=== PATIENT | female | born 1980 | race Caucasian/White ===

== ENCOUNTER → 2022-02-14 16:18 | Outpatient (BNVA) | payer OTHER, SELFPAY | PROVIDERS: Visit Provider Family Medicine | DX: R79.89 Other specified abnormal findings of blood chemistry (principal); Z13.220 Encounter for screening for lipoid disorders; Z13.6 Encounter for screening for cardiovascular disorders; Z76.89 Persons encountering health services in other specified circumstances; Z12.4 Encounter for screening for malignant neoplasm of cervix; Z12.39 Encounter for other screening for malignant neoplasm of breast | CPT/HCPCS: 80053; 80061; 82306; 84443; 85025 ==

== ENCOUNTER → 2022-04-18 11:35 | Outpatient (BNVA) | payer OTHER, SELFPAY | PROVIDERS: Visit Provider Nurse Practitioner Women's Health | DX: N93.9 Abnormal uterine and vaginal bleeding, unspecified (principal); Z12.4 Encounter for screening for malignant neoplasm of cervix | CPT/HCPCS: 87624 ==

== ENCOUNTER → 2022-04-25 13:32 | Outpatient (BNVA) | payer OTHER, SELFPAY | PROVIDERS: Visit Provider Nurse Practitioner Women's Health | DX: N93.9 Abnormal uterine and vaginal bleeding, unspecified (principal) | CPT/HCPCS: 76830 ==

== ENCOUNTER 2022-05-03 10:13 | Outpatient (CLI) | payer OTHER, SELFPAY ==
--- NOTE | 2022-05-03 10:22 | MM_ITS ---
WS: [id number] BILATERAL SCREENING DIGITAL BREAST MAMMOGRAPHY WITH LIZY DISPLACEMENT VIEWS. CAD PERFORMED. HISTORY: Breast cancer screening COMPARISON: None available. Bilateral craniocaudal and mediolateral oblique views are performed with tomosynthesis and SM. Lizy displacement views in CC and MLO projection also performed. Breasts composition: The breasts are heterogeneously dense, which may obscure small masses. Breast i mplants are identified. No capsular contraction or collapse of either implant. Normal fibroglandular densities. No persistent masses or calcifications. MM/[place] [id number] IMPRESSION: BI-RADS: 2-Benign FOLLOW-UP: 1 Year Follow-up
== END 2022-05-03 10:14 | disposition home or self-care (01) ==
PROVIDERS: PCP Family Medicine; Visit Provider Family Medicine
DX: Z12.31 Encounter for screening mammogram for malignant neoplasm of breast (principal)
CPT/HCPCS: 77063; 77067

== ENCOUNTER → 2022-05-12 14:51 | Outpatient (BNVA) | payer OTHER, SELFPAY | PROVIDERS: PCP Family Medicine; Visit Provider Nurse Practitioner Women's Health | DX: N93.9 Abnormal uterine and vaginal bleeding, unspecified (principal); D22.9 Melanocytic nevi, unspecified | CPT/HCPCS: 84702 ==

== ENCOUNTER → 2022-06-26 10:14 | Outpatient (BNVA) | payer OTHER, SELFPAY | PROVIDERS: PCP Family Medicine; Visit Provider Registered Nurse Neonatal Intensive Care | DX: N30.00 Acute cystitis without hematuria (principal) | CPT/HCPCS: 81000 ==

== ENCOUNTER → 2022-07-02 12:51 | Outpatient (BNVA) | payer OTHER, SELFPAY | PROVIDERS: PCP Family Medicine; Visit Provider Family Medicine | DX: N39.0 Urinary tract infection, site not specified (principal) | CPT/HCPCS: 81000 ==

== ENCOUNTER → 2023-02-27 11:20 | Outpatient (BNVA) | payer OTHER, SELFPAY | PROVIDERS: PCP Family Medicine; Visit Provider Podiatrist Foot & Ankle Surgery | DX: B35.3 Tinea pedis (principal) | CPT/HCPCS: 36415; 80053 ==

== ENCOUNTER → 2023-04-12 12:14 | Outpatient (BNVA) | payer OTHER, SELFPAY | PROVIDERS: PCP Family Medicine; Visit Provider Podiatrist Foot & Ankle Surgery | DX: B35.1 Tinea unguium (principal) | CPT/HCPCS: 80053 ==

== ENCOUNTER → 2023-05-17 10:15 | Outpatient (BNVA) | payer OTHER, SELFPAY | PROVIDERS: PCP Family Medicine; Visit Provider Nurse Practitioner Women's Health | DX: N63.20 Unspecified lump in the left breast, unspecified quadrant (principal); Z01.419 Encounter for gynecological examination (general) (routine) without abnormal findings | CPT/HCPCS: 87624 ==

== ENCOUNTER 2023-07-03 10:44 | Outpatient (CLI) | payer OTHER, SELFPAY ==
--- NOTE | 2023-07-03 10:48 | MM_ITS ---
WS: [id number] DIAGNOSTIC BILATERAL DIGITAL BREAST TOMOSYNTHESIS MAMMOGRAPHY WITH CAD with implant displacement. LEFT breast ultrasound, limited HISTORY: N63.20 - Unspecified lump in the left breast, unspecified... COMPARISON: 05/03/2022 TECHNIQUE: Bilateral craniocaudad, mediolateral oblique, and mediolateral views are submitted with to mosynthesis and SM with implant displacement. Spot compression LEFT CC and MLO. Computer aided detect ion utilized. Breast composition: The breasts are heterogeneously dense, which may obscure small masses. There is a spiculated mass noted in the superior LEFT breast. Difficult to visualize on the CC projection due t o the implants. This is new since the prior exam. Implants are intact. LEFT breast ultrasound, limited. Hypoechoic mass with irregular borders in the LEFT breast at 12:00 corresponds to the mammographic ab normality. Mass measures 1.5 x 2.2 x 1.0 cm. This mass is closely associated with the breast implant. This needs to be further evaluated by biopsy. IMPRESSION: MM/[place] [id number] BI-RADS: 4-Suspicious Finding-Biopsy Should Be Considered FOLLOW UP: Biopsy Recommended Ultrasound-guided biopsy recommended of the spiculated mass 12:00 LEFT breast. Notified ROME Modi at 07/03/2023 1:45 PM.
== END 2023-07-03 10:45 | disposition home or self-care (01) ==
LOC: RAD 10:44
PROVIDERS: PCP Family Medicine; Visit Provider Nurse Practitioner Women's Health
DX: N63.25 Unspecified lump in the left breast, overlapping quadrants (principal); T85.42XA Displacement of breast prosthesis and implant, initial encounter; Y82.8 Other medical devices associated with adverse incidents
CPT/HCPCS: 76642; 77062; G0279

== ENCOUNTER 2023-07-20 11:32 | Outpatient (CLI) | payer OTHER, SELFPAY ==
--- NOTE | 2023-07-20 12:45 | US_ITS ---
WS: [id number] ULTRASOUND-GUIDED LEFT BREAST BIOPSY HISTORY: N63.20 - Unspecified lump in the left breast, unspecified... COMPARISON: 07/03/2023 mammogram and ultrasound. Procedure, risks and complications are explained to the patient. Medications are reviewed. Consent is obtained. The mass in the LEFT breast is localized with ultrasound. There is a breast implant identified. Skin is cleansed with ChloraPrep and anesthetized with 1% buffered lidocaine. Small dermatome is made. Und er sterile conditions mass is biopsied with a 14-gauge Achieve needle. Multiple core biopsies are per formed. Material placed in formalin and sent to pathology for review. No complications encountered. Breast tissue marker (Bard ultrasound enhanced ribbon): Single. Patient left the radiology suite with no complications. Patient is instructed to return to [facility] or [facility] with any concerns. IMPRESSION: 1. Uncomplicated core needle biopsy LEFT breast mass at 12:00, 3 cm from the nipple. 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 Background ductal carcinoma in situ. No definite lymphovascular inv asion. RECOMMENDATION: Review of the entire pathology report. Follow-up with oncology and breast surgeon.
[2023-07-31 10:30] LABS: Breast Profile ER,PR,HER2,Ki-6 See Report
== END 2023-07-20 11:33 | disposition home or self-care (01) ==
LOC: RAD 11:32
PROVIDERS: PCP Family Medicine; Visit Provider Nurse Practitioner Women's Health
DX: C50.812 Malignant neoplasm of overlapping sites of left female breast (principal); R92.0 Mammographic microcalcification found on diagnostic imaging of breast
CPT/HCPCS: 19083; 88305; 88361; 88374

== ENCOUNTER 2023-10-18 10:42 | Outpatient (CLI) | payer OTHER, SELFPAY ==
--- NOTE | 2023-10-18 11:15 | USCV_ITS ---
Penny Garcia Age: 42 Gender: F : 1980 Exam Date: 10/18/2023 11:15 Ordering Phys: Abelardo Hancock MD Technologist: KATALINA Exam Location: [facility] – [place] Indication: HI-RISK MEDS BP: 100 / 62 HR: 56 Rhythm: Sinus Technical Quality: Adequate MEASUREMENTS (Male / Female) Normal Values 2D ECHO LV Diastolic Diameter PLAX 3.6 cm 4.2 - 5.9 / 3.9 - 5.3 cm IVS Diastolic Thickness 0.8 cm 0.6 - 1.0 / 0.6 - 0.9 cm IVS Systolic Thickness 1.2 cm LVPW Diastolic Thickness 1.6 cm 0.6 - 1.0 / 0.6 - 0.9 cm LVPW Systolic Thickness 1.8 cm LVOT Diameter 1.9 cm LV Ejection Fraction 2D Teich 57.8 % LV Ejection Fraction MOD 2C 70.5 % LV Ejection Fraction 2C AL 70.8 % LA Diameter 2.2 cm RA Systolic Volume 4C AL 9.1 ml RA Systolic Volume 4C MOD 8.8 ml Aorta at Sinotubular Diameter 2.4 cm IVC Diameter 1.4 cm M-MODE LA Ao Ratio MM 0.8 AV Cusp Separation MM 1.8 cm DOPPLER AV Peak Velocity 115.0 cm/s LVOT Peak Velocity 93.0 cm/s AV Area Cont Eq vti 2.5 cm squared AV Area Cont Eq pk 2.4 cm squared MV Peak Velocity 89.0 cm/s MV Area PHT 3.8 cm squared Mitral E to A Ratio 1.2 TR Peak Velocity 174.0 cm/s TR Peak Gradient 12.1 mmHg TR Mean Velocity 135.0 cm/s TR Mean Gradient 8.3 mmHg TR Velocity Time Integral 43.5 cm TV Peak E Velocity 66.0 cm/s PV Peak Velocity 101.0 cm/s RV Ejection Time 0.3 s FINDINGS Left Ventricle Normal left ventricular size and systolic function, EF 70%.. No gross wall motion normalities Right Ventricle The right ventricle is normal in size and function. Right Atrium The right atrium is normal in size. Left Atrium The left atrium is normal in size. Mitral Valve Trace to mild mitral valve regurgitation. Aortic Valve Minimally thickened aortic valve Tricuspid Valve Trace tricuspid valve regurgitation. Pulmonic Valve No gross abnormalities noted Pericardium Normal pericardium without effusion. Aorta Normal ascending aorta dimension. IVC Normal IVC dimension with <50% respiratory change of the inferior vena cava. CONCLUSIONS Normal left ventricular size and systolic function, EF 70%.. No gross wall motion normalities. Trace to mild mitral valve regurgitation. Trace tricuspid valve regurgitation. There is no pericardial effusion. There are no intracardiac masses. No similar previous studies are available for comparison Dr Apryl Morgan MD [facility] (Electronically Signed) Final Date: 19 October 2023 16:36 S
== END 2023-10-18 10:43 | disposition home or self-care (01) ==
LOC: RAD 10:42
PROVIDERS: PCP Family Medicine; Visit Provider Internal Medicine Medical Oncology
DX: C50.812 Malignant neoplasm of overlapping sites of left female breast (principal)
CPT/HCPCS: 93306

== ENCOUNTER 2023-11-08 08:05 | Oncology outpatient (recurring) (ONCR) | payer OTHER, SELFPAY ==
[2023-11-08 08:28] LABS: Basophils % 0.1 %; Lymphocytes # 1.2 10^3/uL (0.8-4.8); Lymphocytes % 10.2 %; Mean Corpuscular HGB Conc 33.2 g/dL (30-55); Mean Corpuscular Hemoglobin 28.3 pg (27-33); Mean Corpuscular Volume 85.2 fl (85-98); Mean Platelet Volume 9.8 fL (7.4-10.4); Monocytes # 0.9 10^3/uL (0.2-0.9); Neutrophils % 81.2 %; Nucleated Red Blood Cells % 0 %; Platelet Count 283 10^3/cmm (157-399); Red Blood Count 4.46 10^6/uL (3.85-5.65); Red Cell Distribution Width 12.1 % (12.1-15.1); White Blood Count 11.69 10^3/uL (3.29-11.43)
[2023-11-08 08:56] LABS: Alanine Aminotransferase 20 U/L (0-33); Albumin Level 4.4 g/dL (3.5-5.2); Alkaline Phosphatase 57 U/L (35-105); Anion Gap 14.7 (5-19); Aspartate Amino Transferase 21 U/L (0-32); Blood Urea Nitrogen 10 mg/dL (6-20); Calcium 9.8 mg/dL (8.5-10.5); Carbon Dioxide 24 mmol/L (22-29); Chloride 108 mmol/L (98-107); Globulin 2.9 g/dL (1.3-4.6); Glomerular Filtration Rate 109.6 mL/min (90-130); Glucose 130 mg/dL (65-115); Osmolality Calculated 297 mOsm/kg (285-295); Potassium 3.7 mmol/L (3.5-5.1); Sodium 143 mmol/L (136-145); Total Bilirubin 0.2 mg/dL (0.15-1.2); Total Protein 7.3 g/dL (6.6-8.7)
[2023-11-08] MEDS: sodium chloride 0.9% 250 ML 75 ML IV (10:48)
[2023-11-08] MEDS: OLANZapine 5 mg TABLET PO (10:48)
[2023-11-08] MEDS: palonosetron 0.25 mg/5 mL SDV IVP (10:48)
[2023-11-08] MEDS: famotidine 20 mg/2 mL INJ IVP (10:53)
[2023-11-08] MEDS: diphenhydrAMINE 50 mg/mL SDV 1mL 25 MG IVP (10:54)
[2023-11-08] MEDS: fosaprepitant 150 MG in sodium chloride 0.9% 150 ML 300 MG IV (11:14)
[2023-11-08] MEDS: pertuzumab 840 MG in sodium chloride 0.9% 250 ML 278 MG IV (12:08)
[2023-11-08] MEDS: TRASTUZUMAB DTTB IV (13:55)
[2023-11-08] MEDS: SODIUM CHLORIDE 0.9% IV ×2 (13:55→16:36)
[2023-11-08] MEDS: [UNRECOGNIZED DRUG - REMARK] 262 MG IV (15:32)
[2023-11-08] MEDS: CARBOPLATIN IV (16:36)
[2023-11-08] MEDS: pegfilgrastim 6 mg/0.6 mL Kit (onpro) SUBCUT (17:29)
[2023-11-08 17:38] VITALS: BP 125/85; PULSE 83; TEMP 36.3; O2SAT 97
== END 2023-11-08 23:59 | disposition home or self-care (01) ==
PROVIDERS: PCP Family Medicine; Visit Provider Internal Medicine Medical Oncology
DX: Z51.11 Encounter for antineoplastic chemotherapy (principal); C50.812 Malignant neoplasm of overlapping sites of left female breast
CPT/HCPCS: 80053; 85025; 96367; 96375; 96377; 96413; 96415; 96417; J1100; J1200; J1453; J2469; J2506; J3490; J7040; J7050; J9045; J9171; J9306; Q5112

== ENCOUNTER 2023-11-22 09:15 | Oncology outpatient (recurring) (ONCR) | payer OTHER, SELFPAY ==
[2023-11-15 12:04] LABS: Basophils % 0.3 %; Eosinophils % 0.2 %; Hematocrit 37.9 % (36-47); Lymphocytes # 1.9 10^3/uL (0.8-4.8); Lymphocytes % 18.1 %; Mean Corpuscular HGB Conc 33.8 g/dL (30-55); Mean Corpuscular Hemoglobin 28.3 pg (27-33); Mean Corpuscular Volume 83.8 fl (85-98); Mean Platelet Volume 10.5 fL (7.4-10.4); Monocytes # 2.4 10^3/uL (0.2-0.9); Monocytes % 22.5 %; Neutrophils # 5.43 10^3/uL (1.8-7.7); Neutrophils % 52.1 %; Nucleated Red Blood Cells % 0 %; Platelet Count 189 10^3/cmm (157-399); Red Blood Count 4.52 10^6/uL (3.85-5.65); Red Cell Distribution Width 11.9 % (12.1-15.1); White Blood Count 10.43 10^3/uL (3.29-11.43)
[2023-11-15 12:24] LABS: Alanine Aminotransferase 130 U/L (0-33); Albumin Level 4.2 g/dL (3.5-5.2); Alkaline Phosphatase 90 U/L (35-105); Anion Gap 13.4 (5-19); Aspartate Amino Transferase 71 U/L (0-32); Blood Urea Nitrogen 14 mg/dL (6-20); Calcium 9.2 mg/dL (8.5-10.5); Carbon Dioxide 27 mmol/L (22-29); Chloride 100 mmol/L (98-107); Glomerular Filtration Rate 109.6 mL/min (90-130); Glucose 90 mg/dL (65-115); Osmolality Calculated 282 mOsm/kg (285-295); Potassium 4.4 mmol/L (3.5-5.1); Sodium 136 mmol/L (136-145); Total Bilirubin 0.2 mg/dL (0.15-1.2); Total Protein 7.2 g/dL (6.6-8.7)
[2023-11-15 12:58] LABS: Slide Review Slide Review Perform
[2023-11-15] MEDS: dexamethasone 4 mg/mL INJ IVP (14:06)
[2023-11-15] MEDS: sodium chloride 0.9% 1,000 ML 999 ML IV (15:17)
[2023-11-15 15:20] VITALS: BP 105/70; PULSE 79; RESP 16; TEMP 36.6; O2SAT 99
[2023-11-22 09:29] VITALS: BP 110/76; PULSE 87; RESP 16; TEMP 36.7; O2SAT 99
[2023-11-22 09:30] VITALS: BMI 20.5
[2023-11-22 09:53] LABS: Basophils % 0.2 %; Eosinophils % 0.1 %; Hematocrit 32.3 % (36-47); Lymphocytes # 1.5 10^3/uL (0.8-4.8); Lymphocytes % 14.8 %; Mean Corpuscular HGB Conc 33.7 g/dL (30-55); Mean Corpuscular Hemoglobin 28.8 pg (27-33); Mean Corpuscular Volume 85.4 fl (85-98); Mean Platelet Volume 9.9 fL (7.4-10.4); Monocytes # 0.6 10^3/uL (0.2-0.9); Monocytes % 5.6 %; Neutrophils # 8.01 10^3/uL (1.8-7.7); Neutrophils % 78.1 %; Nucleated Red Blood Cells % 0 %; Platelet Count 105 10^3/cmm (157-399); Red Blood Count 3.78 10^6/uL (3.85-5.65); Red Cell Distribution Width 12.1 % (12.1-15.1); White Blood Count 10.25 10^3/uL (3.29-11.43)
[2023-11-22 10:17] LABS: Alanine Aminotransferase 25 U/L (0-33); Albumin Level 3.7 g/dL (3.5-5.2); Alkaline Phosphatase 68 U/L (35-105); Anion Gap 10.7 (5-19); Aspartate Amino Transferase 18 U/L (0-32); Blood Urea Nitrogen 8 mg/dL (6-20); Calcium 8.6 mg/dL (8.5-10.5); Carbon Dioxide 26 mmol/L (22-29); Chloride 106 mmol/L (98-107); Globulin 2.6 g/dL (1.3-4.6); Glomerular Filtration Rate 109.6 mL/min (90-130); Glucose 96 mg/dL (65-115); Osmolality Calculated 286 mOsm/kg (285-295); Potassium 3.7 mmol/L (3.5-5.1); Sodium 139 mmol/L (136-145); Total Bilirubin 0.2 mg/dL (0.15-1.2); Total Protein 6.3 g/dL (6.6-8.7)
[2023-11-22] MEDS: sodium chloride 0.9% 1,000 ML 999 ML IV (11:20)
[2023-11-22 12:30] VITALS: BP 117/74; PULSE 70; RESP 16; TEMP 36.6; O2SAT 98
== END 2023-11-27 23:59 | disposition home or self-care (01) ==
PROVIDERS: Nurse Practitioner Family; PCP Family Medicine; Visit Provider Internal Medicine Medical Oncology
DX: Z53.9 Procedure and treatment not carried out, unspecified reason (principal); C50.812 Malignant neoplasm of overlapping sites of left female breast
CPT/HCPCS: 80053; 85025; 96360; J1100; J7030

== ENCOUNTER 2023-11-29 07:59 | Oncology outpatient (recurring) (ONCR) | payer OTHER, SELFPAY ==
[2023-11-29 08:26] LABS: Basophils % 0.1 %; Hematocrit 29.9 % (36-47); Lymphocytes # 1.4 10^3/uL (0.8-4.8); Lymphocytes % 14.7 %; Mean Corpuscular HGB Conc 33.4 g/dL (30-55); Mean Corpuscular Hemoglobin 28.9 pg (27-33); Mean Corpuscular Volume 86.4 fl (85-98); Mean Platelet Volume 9.2 fL (7.4-10.4); Monocytes # 1.1 10^3/uL (0.2-0.9); Neutrophils # 7.01 10^3/uL (1.8-7.7); Neutrophils % 73.7 %; Nucleated Red Blood Cells % 0 %; Platelet Count 400 10^3/cmm (157-399); Red Blood Count 3.46 10^6/uL (3.85-5.65); Red Cell Distribution Width 13.5 % (12.1-15.1); White Blood Count 9.52 10^3/uL (3.29-11.43)
[2023-11-29 08:47] LABS: Alanine Aminotransferase 23 U/L (0-33); Albumin Level 3.8 g/dL (3.5-5.2); Alkaline Phosphatase 55 U/L (35-105); Anion Gap 13.5 (5-19); Aspartate Amino Transferase 26 U/L (0-32); Blood Urea Nitrogen 10 mg/dL (6-20); Calcium 9.3 mg/dL (8.5-10.5); Carbon Dioxide 25 mmol/L (22-29); Chloride 105 mmol/L (98-107); Globulin 2.9 g/dL (1.3-4.6); Glomerular Filtration Rate 135.3 mL/min (90-130); Glucose 96 mg/dL (65-115); Osmolality Calculated 289 mOsm/kg (285-295); Potassium 3.5 mmol/L (3.5-5.1); Sodium 140 mmol/L (136-145); Total Bilirubin 0.3 mg/dL (0.15-1.2); Total Protein 6.7 g/dL (6.6-8.7)
[2023-11-29] MEDS: sodium chloride 0.9% 250 ML 75 ML IV (10:33)
[2023-11-29] MEDS: diphenhydrAMINE 50 mg/mL SDV 1mL 25 MG IVP (10:34)
[2023-11-29] MEDS: OLANZapine 5 mg TABLET PO (10:34)
[2023-11-29] MEDS: famotidine 20 mg/2 mL INJ IVP (10:37)
[2023-11-29] MEDS: palonosetron 0.25 mg/5 mL SDV IVP (10:40)
[2023-11-29] MEDS: fosaprepitant 150 MG in sodium chloride 0.9% 150 ML 300 MG IV (11:18)
[2023-11-29] MEDS: pertuzumab 420 MG in sodium chloride 0.9% 250 ML 264 MG IV (12:08)
[2023-11-29] MEDS: TRASTUZUMAB DTTB IV (13:33)
[2023-11-29] MEDS: SODIUM CHLORIDE 0.9% IV ×2 (13:33→15:40)
[2023-11-29] MEDS: [UNRECOGNIZED DRUG - REMARK] 262 MG IV (14:34)
[2023-11-29] MEDS: CARBOPLATIN IV (15:40)
[2023-11-29] MEDS: pegfilgrastim 6 mg/0.6 mL Kit (onpro) SUBCUT (16:40)
[2023-11-29 16:55] VITALS: BP 122/78; PULSE 74; RESP 18; TEMP 36.6; O2SAT 98
== END 2023-11-29 23:59 | disposition home or self-care (01) ==
PROVIDERS: Nurse Practitioner Family; PCP Family Medicine; Visit Provider Internal Medicine Medical Oncology
DX: C50.812 Malignant neoplasm of overlapping sites of left female breast (principal)
CPT/HCPCS: 80053; 85025; 96367; 96375; 96377; 96401; 96413; 96415; J1100; J1200; J1453; J2469; J2506; J3490; J7040; J7050; J9045; J9171; J9306; Q5112

== ENCOUNTER 2023-12-20 07:30 | Oncology outpatient (recurring) (ONCR) | payer OTHER, SELFPAY ==
[2023-12-04 09:05] VITALS: BP 129/80; PULSE 107; RESP 16; TEMP 37.1; O2SAT 96
[2023-12-04] MEDS: sodium chloride 0.9% 1,000 ML 999 ML IV (09:11)
[2023-12-04 11:02] VITALS: BP 109/69; PULSE 92; RESP 16; O2SAT 98
[2023-12-06 09:18] VITALS: BP 102/68; PULSE 84; RESP 16; TEMP 37.3; O2SAT 98
[2023-12-06] MEDS: sodium chloride 0.9% 1,000 ML 999 ML IV (09:23)
[2023-12-06 09:27] LABS: Hematocrit 34.1 % (36-47); Mean Corpuscular HGB Conc 33.4 g/dL (30-55); Mean Corpuscular Hemoglobin 28.6 pg (27-33); Mean Corpuscular Volume 85.7 fl (85-98); Mean Platelet Volume 9.9 fL (7.4-10.4); Platelet Count 262 10^3/cmm (157-399); Red Blood Count 3.98 10^6/uL (3.85-5.65); Red Cell Distribution Width 13.2 % (12.1-15.1); White Blood Count 16.12 10^3/uL (3.29-11.43)
[2023-12-06 09:46] LABS: Slide Review Slide Review Perform
[2023-12-06 09:48] LABS: Absolute Segmented Neutrophil 7.7 10/cmm (1.6-7.1); Band Neutrophils Absolute 1.3 10^3/cmm (0.0-1.2); Eosinophils 0 %; Giant Platelets Trace; Lymphocytes 24 %; Monocytes Absolute 1.6 10^3/cmm (0.1-0.6); Platelet Estimate Normal (Normal); Segmented Neutrophils 48 %; Total Cells Counted 100 (0-100)
[2023-12-06 10:24] LABS: Alanine Aminotransferase 72 U/L (0-33); Albumin Level 4.2 g/dL (3.5-5.2); Alkaline Phosphatase 107 U/L (35-105); Anion Gap 15.8 (5-19); Aspartate Amino Transferase 44 U/L (0-32); Blood Urea Nitrogen 13 mg/dL (6-20); Calcium 9.6 mg/dL (8.5-10.5); Carbon Dioxide 27 mmol/L (22-29); Chloride 100 mmol/L (98-107); Globulin 2.8 g/dL (1.3-4.6); Glomerular Filtration Rate 109.6 mL/min (90-130); Glucose 93 mg/dL (65-115); Osmolality Calculated 288 mOsm/kg (285-295); Potassium 3.8 mmol/L (3.5-5.1); Sodium 139 mmol/L (136-145); Total Bilirubin 0.2 mg/dL (0.15-1.2)
[2023-12-13 09:00] VITALS: BP 122/79; PULSE 88; RESP 16; TEMP 36.6; O2SAT 100
[2023-12-13 14:18] VITALS: BP 114/74; PULSE 90; RESP 16; TEMP 36.6; O2SAT 99
[2023-12-13] MEDS: sodium chloride 0.9% 1,000 ML 999 ML IV (14:19)
[2023-12-20 07:54] LABS: Basophils % 0.1 %; Hematocrit 30.8 % (36-47); Lymphocytes # 1.5 10^3/uL (0.8-4.8); Lymphocytes % 15.8 %; Mean Corpuscular HGB Conc 33.1 g/dL (30-55); Mean Corpuscular Hemoglobin 28.9 pg (27-33); Mean Corpuscular Volume 87.3 fl (85-98); Mean Platelet Volume 9.3 fL (7.4-10.4); Monocytes # 0.9 10^3/uL (0.2-0.9); Monocytes % 9.4 %; Neutrophils # 7.27 10^3/uL (1.8-7.7); Neutrophils % 74.5 %; Nucleated Red Blood Cells % 0 %; Platelet Count 182 10^3/cmm (157-399); Red Blood Count 3.53 10^6/uL (3.85-5.65); Red Cell Distribution Width 15.4 % (12.1-15.1); White Blood Count 9.76 10^3/uL (3.29-11.43)
[2023-12-20 08:10] LABS: Alanine Aminotransferase 19 U/L (0-33); Albumin Level 4.1 g/dL (3.5-5.2); Alkaline Phosphatase 57 U/L (35-105); Anion Gap 13.6 (5-19); Aspartate Amino Transferase 18 U/L (0-32); Blood Urea Nitrogen 10 mg/dL (6-20); Calcium 9.4 mg/dL (8.5-10.5); Carbon Dioxide 25 mmol/L (22-29); Chloride 105 mmol/L (98-107); Globulin 2.6 g/dL (1.3-4.6); Glomerular Filtration Rate 109.6 mL/min (90-130); Glucose 94 mg/dL (65-115); Osmolality Calculated 289 mOsm/kg (285-295); Potassium 3.6 mmol/L (3.5-5.1); Sodium 140 mmol/L (136-145); Total Bilirubin 0.3 mg/dL (0.15-1.2); Total Protein 6.7 g/dL (6.6-8.7)
[2023-12-20] MEDS: sodium chloride 0.9% 500 ML IV (09:50)
[2023-12-20] MEDS: LORazepam 2 mg/mL INJ 1 mL 0.25 MG IVP (09:50)
[2023-12-20] MEDS: diphenhydrAMINE 50 mg/mL SDV 1mL 25 MG IVP (10:36)
[2023-12-20] MEDS: palonosetron 0.25 mg/5 mL SDV IVP (10:36)
[2023-12-20] MEDS: famotidine 20 mg/2 mL INJ IVP (10:38)
[2023-12-20] MEDS: fosaprepitant 150 MG in sodium chloride 0.9% 150 ML 300 MG IV (10:58)
[2023-12-20] MEDS: PERTUZUMAB IV (12:43)
[2023-12-20] MEDS: SODIUM CHLORIDE 0.9% IV ×3 (12:43→16:18)
[2023-12-20] MEDS: TRASTUZUMAB DTTB IV (14:00)
[2023-12-20] MEDS: [UNRECOGNIZED DRUG - REMARK] 262 MG IV (15:05)
[2023-12-20] MEDS: CARBOPLATIN IV (16:18)
[2023-12-20] MEDS: pegfilgrastim 6 mg/0.6 mL Kit (onpro) SUBCUT (17:22)
[2023-12-20 17:25] VITALS: BP 110/74; PULSE 77; RESP 18; TEMP 36.6; O2SAT 97
== END 2023-12-20 23:59 | disposition home or self-care (01) ==
PROVIDERS: Nurse Practitioner Family; PCP Family Medicine; Visit Provider Internal Medicine Medical Oncology
DX: Z53.9 Procedure and treatment not carried out, unspecified reason (principal); Z51.11 Encounter for antineoplastic chemotherapy; C50.812 Malignant neoplasm of overlapping sites of left female breast
CPT/HCPCS: 80053; 85007; 85025; 96360; 96367; 96375; 96377; 96413; 96417; J1100; J1200; J1453; J2060; J2469; J2506; J3490; J7030; J7040; J7050; J9045; J9171; J9306; Q5112

== ENCOUNTER 2023-12-28 10:00 | Oncology outpatient (recurring) (ONCR) | payer OTHER, SELFPAY ==
[2023-12-27 14:30] VITALS: BP 97/53; PULSE 100; RESP 16; O2SAT 96
[2023-12-27] MEDS: sodium chloride 0.9% 1,000 ML 999 ML IV (15:15)
[2023-12-27 15:41] LABS: Basophils # 0.1 10^3/uL (0.0-0.1); Basophils % 1.4 %; Hematocrit 31.8 % (36-47); Lymphocytes # 1.6 10^3/uL (0.8-4.8); Lymphocytes % 33.5 %; Mean Corpuscular HGB Conc 33.3 g/dL (30-55); Mean Corpuscular Hemoglobin 29.4 pg (27-33); Mean Corpuscular Volume 88.1 fl (85-98); Mean Platelet Volume 10.1 fL (7.4-10.4); Monocytes # 0.9 10^3/uL (0.2-0.9); Monocytes % 18.2 %; Neutrophils # 2.22 10^3/uL (1.8-7.7); Neutrophils % 45.9 %; Nucleated Red Blood Cells % 0 %; Platelet Count 141 10^3/cmm (157-399); Red Blood Count 3.61 10^6/uL (3.85-5.65); Red Cell Distribution Width 14.9 % (12.1-15.1); White Blood Count 4.84 10^3/uL (3.29-11.43)
[2023-12-27 16:13] LABS: Alanine Aminotransferase 42 U/L (0-33); Alkaline Phosphatase 86 U/L (35-105); Anion Gap 11.8 (5-19); Aspartate Amino Transferase 27 U/L (0-32); Blood Urea Nitrogen 12 mg/dL (6-20); Calcium 8.9 mg/dL (8.5-10.5); Carbon Dioxide 27 mmol/L (22-29); Chloride 100 mmol/L (98-107); Globulin 2.5 g/dL (1.3-4.6); Glomerular Filtration Rate 135.3 mL/min (90-130); Glucose 100 mg/dL (65-115); Osmolality Calculated 280 mOsm/kg (285-295); Potassium 3.8 mmol/L (3.5-5.1); Sodium 135 mmol/L (136-145); Total Bilirubin 0.3 mg/dL (0.15-1.2); Total Protein 6.5 g/dL (6.6-8.7)
[2023-12-27 16:24] LABS: Slide Review Slide Review Perform
[2023-12-27 16:26] VITALS: BP 100/67; PULSE 77; RESP 18; TEMP 36.3; O2SAT 97
[2023-12-28 10:26] VITALS: BP 102/68; PULSE 74; RESP 16; O2SAT 97
[2023-12-28] MEDS: sodium chloride 0.9% 1,000 ML 999 ML IV (10:31)
[2023-12-28 12:10] VITALS: BP 104/71; PULSE 75; RESP 16; TEMP 36.8; O2SAT 99
== END 2023-12-28 23:59 | disposition home or self-care (01) ==
PROVIDERS: Internal Medicine; PCP Family Medicine; Visit Provider Internal Medicine Medical Oncology
DX: Z53.9 Procedure and treatment not carried out, unspecified reason (principal); C50.812 Malignant neoplasm of overlapping sites of left female breast
CPT/HCPCS: 80053; 85025; 96360; 96361; J7030

== ENCOUNTER 2024-01-10 08:38 | Oncology outpatient (recurring) (ONCR) | payer OTHER, SELFPAY ==
[2024-01-10 09:29] LABS: Basophils % 0.1 %; Hematocrit 28.8 % (36-47); Lymphocytes # 1.5 10^3/uL (0.8-4.8); Lymphocytes % 19.6 %; Mean Corpuscular HGB Conc 33.3 g/dL (30-55); Mean Corpuscular Hemoglobin 30.2 pg (27-33); Mean Corpuscular Volume 90.6 fl (85-98); Mean Platelet Volume 9.7 fL (7.4-10.4); Monocytes # 0.6 10^3/uL (0.2-0.9); Monocytes % 8.5 %; Neutrophils # 5.29 10^3/uL (1.8-7.7); Neutrophils % 71.5 %; Nucleated Red Blood Cells % 0 %; Platelet Count 270 10^3/cmm (157-399); Red Blood Count 3.18 10^6/uL (3.85-5.65); Red Cell Distribution Width 18.3 % (12.1-15.1)
[2024-01-10 09:49] LABS: Alanine Aminotransferase 16 U/L (0-33); Albumin Level 4.1 g/dL (3.5-5.2); Alkaline Phosphatase 56 U/L (35-105); Anion Gap 15.4 (5-19); Aspartate Amino Transferase 19 U/L (0-32); Blood Urea Nitrogen 9 mg/dL (6-20); Calcium 9.4 mg/dL (8.5-10.5); Carbon Dioxide 25 mmol/L (22-29); Chloride 103 mmol/L (98-107); Globulin 2.3 g/dL (1.3-4.6); Glomerular Filtration Rate 134.7 mL/min (90-130); Glucose 108 mg/dL (65-115); Osmolality Calculated 289 mOsm/kg (285-295); Potassium 3.4 mmol/L (3.5-5.1); Sodium 140 mmol/L (136-145); Total Bilirubin 0.3 mg/dL (0.15-1.2); Total Protein 6.4 g/dL (6.6-8.7)
[2024-01-10 11:25] VITALS: BMI 20.6
[2024-01-10] MEDS: famotidine 20 mg/2 mL INJ IVP (11:37)
[2024-01-10] MEDS: diphenhydrAMINE 50 mg/mL SDV 1mL 25 MG IVP (11:37)
[2024-01-10] MEDS: sodium chloride 0.9% 250 ML 75 ML IV (11:37)
[2024-01-10] MEDS: fosaprepitant 150 MG in sodium chloride 0.9% 150 ML 300 MG IV (11:38)
[2024-01-10] MEDS: palonosetron 0.25 mg/5 mL SDV IVP (11:38)
[2024-01-10] MEDS: dexamethasone 4 mg/mL INJ 5 mL 12 MG IV (11:38)
[2024-01-10] MEDS: SODIUM CHLORIDE 0.9% IV ×2 (12:27→13:08)
[2024-01-10] MEDS: PERTUZUMAB IV (12:27)
[2024-01-10] MEDS: TRASTUZUMAB DTTB IV (13:08)
[2024-01-10] MEDS: [UNRECOGNIZED DRUG - REMARK] 262 MG IV (13:51)
[2024-01-10] MEDS: pegfilgrastim 6 mg/0.6 mL Kit (onpro) SUBCUT (15:25)
[2024-01-10 16:20] VITALS: BP 105/66; PULSE 87; RESP 16; TEMP 36.1; O2SAT 98
== END 2024-01-10 23:59 | disposition home or self-care (01) ==
PROVIDERS: Internal Medicine; PCP Family Medicine; Visit Provider Internal Medicine Medical Oncology
DX: C50.812 Malignant neoplasm of overlapping sites of left female breast; Z51.11 Encounter for antineoplastic chemotherapy
CPT/HCPCS: 80053; 85025; 96367; 96375; 96377; 96413; 96417; J1100; J1200; J1453; J2469; J2506; J3490; J7040; J7050; J9045; J9171; J9306; Q5112

== ENCOUNTER 2024-01-17 10:56 | Outpatient (CLI) | payer OTHER, SELFPAY ==
--- NOTE | 2024-01-17 11:15 | USCV_ITS ---
Penny Garcia Age: 43 Gender: F : 1980 Exam Date: 01/17/2024 11:23 Ordering Phys: Myah Almendarez MD Technologist: KATALINA Exam Location: [facility] [place] Indication: high risk meds BP: 107 / 67 HR: 91 Rhythm: Sinus Technical Quality: Adequate MEASUREMENTS (Male / Female) Normal Values 2D ECHO LV Diastolic Diameter PLAX 4.0 cm 4.2 - 5.9 / 3.9 - 5.3 cm IVS Diastolic Thickness 1.0 cm 0.6 - 1.0 / 0.6 - 0.9 cm IVS Systolic Thickness 1.3 cm LVPW Diastolic Thickness 1.1 cm 0.6 - 1.0 / 0.6 - 0.9 cm LVPW Systolic Thickness 1.6 cm LVOT Diameter 2.0 cm LV Ejection Fraction 2D Teich 68.8 % LV Ejection Fraction MOD 2C 63.7 % LV Ejection Fraction 2C AL 63.3 % LA Diameter 2.0 cm RA Systolic Volume 4C AL 9.2 ml RA Systolic Volume 4C MOD 8.6 ml LA Sys Volume AL 18.4 cm cubed LA Sys Volume Index AL 11.5 cm cubed/m squared Aorta at Sinotubular Diameter 2.2 cm IVC Diameter 1.9 cm M-MODE LA Ao Ratio MM 0.8 AV Cusp Separation MM 1.8 cm DOPPLER AV Peak Velocity 116.0 cm/s LVOT Peak Velocity 76.0 cm/s AV Area Cont Eq vti 2.2 cm squared AV Area Cont Eq pk 2.0 cm squared MV Peak Velocity 98.0 cm/s MV Area PHT 4.6 cm squared Mitral E to A Ratio 1.4 TR Peak Velocity 111.0 cm/s TR Peak Gradient 4.9 mmHg TR Mean Velocity 90.0 cm/s TR Mean Gradient 3.6 mmHg TR Velocity Time Integral 27.2 cm TV Peak E Velocity 62.0 cm/s Right Atrial Pressure 3.0 mmHg Pulmonary Artery Systolic Pressu 7.9 mmHg PV Peak Velocity 108.0 cm/s RV Ejection Time 0.3 s FINDINGS Left Ventricle Normal left ventricular size, systolic function and wall thickness, with no regional wall motion abnormalities. Normal left ventricle ejection fraction 60%. Normal diastolic filling pattern. Right Ventricle The right ventricle is normal in size and function. Right Atrium The right atrium is normal in size. Left Atrium The left atrium is normal in size. Mitral Valve Structurally normal mitral valve without significant stenosis or prolapse. There is mild mitral regurgitation. Aortic Valve Structurally normal aortic valve without significant sclerosis or stenosis. There is no aortic regurgitation. Tricuspid Valve Structurally normal tricuspid valve without significant stenosis, trace regurgitation. Pulmonary artery systolic pressure is normal. Pulmonic Valve Structurally normal pulmonic valve without significant stenosis. There is no pulmonic regurgitation. Pericardium Normal pericardium without effusion. Aorta Normal ascending aorta dimension. IVC The inferior vena cava appears normal. CONCLUSIONS 1-Normal left ventricular size, systolic function and wall thickness, with no regional wall motion abnormalities. Normal left ventricle ejection fraction 60%. Normal diastolic filling pattern. 2-There is no pericardial effusion. 3-No significant valve abnormalities. 4-Right atrial pressure is around 5 mm of mercury. Shaylee Ruiz MD (Electronically Signed) Final Date: 17 January 2024 20:56 S
== END 2024-01-17 10:57 | disposition home or self-care (01) ==
PROVIDERS: PCP Family Medicine; Visit Provider Internal Medicine
DX: C50.812 Malignant neoplasm of overlapping sites of left female breast (principal)
CPT/HCPCS: 93306

== ENCOUNTER 2024-01-23 14:00 | Oncology outpatient (recurring) (ONCR) | payer OTHER, SELFPAY ==
[2024-01-14 13:05] VITALS: BP 102/66; PULSE 80; RESP 18; TEMP 36.6; O2SAT 98
[2024-01-14] MEDS: sodium chloride 0.9% 1,000 ML 999 ML IV (13:10)
[2024-01-14 14:19] VITALS: BP 103/66; PULSE 87; RESP 18; TEMP 36.4; O2SAT 99
[2024-01-17 14:00] VITALS: BP 93/45; PULSE 80; RESP 16; TEMP 36.1; O2SAT 98
[2024-01-17] MEDS: sodium chloride 0.9% 1,000 ML 999 ML IV (14:00)
[2024-01-17 15:15] VITALS: BP 110/74; PULSE 88; RESP 16; TEMP 36.8; O2SAT 99
[2024-01-23 14:10] VITALS: BP 89/69; PULSE 84; RESP 18; TEMP 36.3; O2SAT 96
[2024-01-23] MEDS: sodium chloride 0.9% 1,000 ML 999 ML IV (14:28)
[2024-01-23 14:30] VITALS: BP 103/78; PULSE 84; RESP 18; TEMP 36.6; O2SAT 98
== END 2024-01-27 23:59 | disposition home or self-care (01) ==
PROVIDERS: PCP Family Medicine; Visit Provider Internal Medicine Medical Oncology
DX: Z53.9 Procedure and treatment not carried out, unspecified reason (principal); K52.1 Toxic gastroenteritis and colitis; T45.1X5A Adverse effect of antineoplastic and immunosuppressive drugs, initial encounter
CPT/HCPCS: 96360; J7030

== ENCOUNTER 2024-02-04 07:30 | Oncology outpatient (recurring) (ONCR) | payer OTHER, SELFPAY ==
[2024-01-28 14:10] VITALS: BP 103/66; PULSE 85; RESP 18; O2SAT 100
[2024-01-28] MEDS: sodium chloride 0.9% 1,000 ML 999 ML IV (14:14)
[2024-01-28 15:20] VITALS: BP 99/65; PULSE 85; RESP 18; O2SAT 100
[2024-02-04 08:09] LABS: Basophils % 0.2 %; Eosinophils % 0.2 %; Hematocrit 28.4 % (36-47); Lymphocytes # 1.4 10^3/uL (0.8-4.8); Lymphocytes % 27.4 %; Mean Corpuscular HGB Conc 32.7 g/dL (30-55); Mean Corpuscular Hemoglobin 30.8 pg (27-33); Mean Platelet Volume 9.4 fL (7.4-10.4); Monocytes # 0.7 10^3/uL (0.2-0.9); Neutrophils # 3.03 10^3/uL (1.8-7.7); Neutrophils % 58.8 %; Nucleated Red Blood Cells % 0 %; Platelet Count 311 10^3/cmm (157-399); Red Blood Count 3.02 10^6/uL (3.85-5.65); Red Cell Distribution Width 18.7 % (12.1-15.1); White Blood Count 5.15 10^3/uL (3.29-11.43)
[2024-02-04 08:41] LABS: Alanine Aminotransferase 18 U/L (0-33); Albumin Level 4.2 g/dL (3.5-5.2); Alkaline Phosphatase 48 U/L (35-105); Anion Gap 11.7 (5-19); Aspartate Amino Transferase 21 U/L (0-32); Blood Urea Nitrogen 12 mg/dL (6-20); Calcium 9.4 mg/dL (8.5-10.5); Carbon Dioxide 27 mmol/L (22-29); Chloride 106 mmol/L (98-107); Creatinine Clr Calc Pharmacy 129.0233; Globulin 2.3 g/dL (1.3-4.6); Glomerular Filtration Rate 134.7 mL/min (90-130); Glucose 103 mg/dL (65-115); Osmolality Calculated 292 mOsm/kg (285-295); Potassium 3.7 mmol/L (3.5-5.1); Sodium 141 mmol/L (136-145); Total Bilirubin 0.3 mg/dL (0.15-1.2); Total Protein 6.5 g/dL (6.6-8.7)
[2024-02-04] MEDS: sodium chloride 0.9% 250 ML 75 ML IV (09:53)
[2024-02-04] MEDS: palonosetron 0.25 mg/5 mL SDV IVP (09:54)
[2024-02-04] MEDS: dexamethasone 4 mg/mL INJ 5 mL 12 MG IVP (09:54)
[2024-02-04] MEDS: diphenhydrAMINE 50 mg/mL SDV 1mL 25 MG IVP (09:57)
[2024-02-04] MEDS: famotidine 20 mg/2 mL INJ IVP (09:59)
[2024-02-04] MEDS: fosaprepitant 150 MG in sodium chloride 0.9% 150 ML 300 MG IV (10:03)
[2024-02-04] MEDS: SODIUM CHLORIDE 0.9% IV ×2 (10:38→11:18)
[2024-02-04] MEDS: PERTUZUMAB IV (10:38)
[2024-02-04] MEDS: TRASTUZUMAB DTTB IV (11:18)
[2024-02-04] MEDS: [UNRECOGNIZED DRUG - REMARK] 262 MG IV (12:07)
[2024-02-04 14:30] VITALS: BP 97/59; PULSE 86; RESP 16; TEMP 36.6; O2SAT 96
[2024-02-04] MEDS: pegfilgrastim 6 mg/0.6 mL Kit (onpro) SUBCUT (14:30)
== END 2024-02-04 23:59 | disposition home or self-care (01) ==
PROVIDERS: Nurse Practitioner Family; PCP Family Medicine; Visit Provider Internal Medicine Medical Oncology
DX: C50.812 Malignant neoplasm of overlapping sites of left female breast; Z53.9 Procedure and treatment not carried out, unspecified reason; Z51.11 Encounter for antineoplastic chemotherapy; Z79.899 Other long term (current) drug therapy; Z79.52 Long term (current) use of systemic steroids
CPT/HCPCS: 80053; 85025; 96360; 96367; 96375; 96377; 96413; 96417; J1100; J1200; J1453; J2469; J2506; J3490; J7030; J7040; J7050; J9045; J9171; J9306; Q5112

== ENCOUNTER 2024-02-25 07:30 | Oncology outpatient (recurring) (ONCR) | payer OTHER, SELFPAY ==
[2024-02-11 08:58] VITALS: BP 101/69; PULSE 89; RESP 18; TEMP 36.9; O2SAT 96
[2024-02-11] MEDS: sodium chloride 0.9% 1,000 ML 999 ML IV (09:00)
[2024-02-11 10:16] VITALS: BP 98/64; PULSE 82; RESP 18; TEMP 36.9; O2SAT 100
[2024-02-14 09:08] VITALS: BP 117/84; PULSE 87; RESP 18; TEMP 36.3; O2SAT 98
[2024-02-14] MEDS: sodium chloride 0.9% 1,000 ML 999 ML IV (09:17)
[2024-02-14 10:20] VITALS: BP 109/72; PULSE 69; RESP 16; TEMP 36.2; O2SAT 99
[2024-02-18] MEDS: sodium chloride 0.9% 1,000 ML 999 ML IV (11:01)
[2024-02-18 11:05] VITALS: BP 103/68; PULSE 79; RESP 16; TEMP 36.9; O2SAT 95
[2024-02-18 12:20] VITALS: BP 104/67; PULSE 69; RESP 16; TEMP 36.8; O2SAT 98
[2024-02-21] MEDS: sodium chloride 0.9% 1,000 ML 999 ML IV (09:14)
[2024-02-21 10:05] VITALS: BP 100/64; PULSE 76; RESP 16; O2SAT 100
[2024-02-25 08:06] LABS: Basophils % 0.2 %; Hematocrit 24.7 % (36-47); Lymphocytes # 1.3 10^3/uL (0.8-4.8); Lymphocytes % 27.7 %; Mean Corpuscular HGB Conc 33.2 g/dL (30-55); Mean Corpuscular Hemoglobin 31.4 pg (27-33); Mean Corpuscular Volume 94.6 fl (85-98); Mean Platelet Volume 10.5 fL (7.4-10.4); Monocytes # 0.6 10^3/uL (0.2-0.9); Monocytes % 12.2 %; Neutrophils # 2.84 10^3/uL (1.8-7.7); Neutrophils % 59.7 %; Nucleated Red Blood Cells % 0 %; Platelet Count 86 10^3/cmm (157-399); Red Blood Count 2.61 10^6/uL (3.85-5.65); Red Cell Distribution Width 18.2 % (12.1-15.1); White Blood Count 4.76 10^3/uL (3.29-11.43)
[2024-02-25 08:27] LABS: Alanine Aminotransferase 21 U/L (0-33); Albumin Level 4.1 g/dL (3.5-5.2); Alkaline Phosphatase 40 U/L (35-105); Anion Gap 13.2 (5-19); Aspartate Amino Transferase 21 U/L (0-32); Blood Urea Nitrogen 12 mg/dL (6-20); Carbon Dioxide 25 mmol/L (22-29); Chloride 105 mmol/L (98-107); Creatinine Clr Calc Pharmacy 106.4804; Globulin 2.1 g/dL (1.3-4.6); Glomerular Filtration Rate 109.1 mL/min (90-130); Glucose 102 mg/dL (65-115); Osmolality Calculated 290 mOsm/kg (285-295); Potassium 3.2 mmol/L (3.5-5.1); Sodium 140 mmol/L (136-145); Total Bilirubin 0.2 mg/dL (0.15-1.2); Total Protein 6.2 g/dL (6.6-8.7)
[2024-02-25] MEDS: sodium chloride 0.9% 250 ML 75 ML IV (09:17)
[2024-02-25] MEDS: diphenhydrAMINE 50 mg/mL SDV 1mL 25 MG IVP (09:17)
[2024-02-25] MEDS: famotidine 20 mg/2 mL INJ IVP (09:27)
[2024-02-25] MEDS: palonosetron 0.25 mg/5 mL SDV IVP (09:31)
[2024-02-25] MEDS: dexamethasone 4 mg/mL INJ 5 mL 12 MG IV (09:34)
[2024-02-25] MEDS: fosaprepitant 150 MG in sodium chloride 0.9% 150 ML 300 MG IV (09:43)
[2024-02-25] MEDS: SODIUM CHLORIDE 0.9% IV ×2 (11:12→12:12)
[2024-02-25] MEDS: PERTUZUMAB IV (11:12)
[2024-02-25] MEDS: TRASTUZUMAB DTTB IV (12:12)
[2024-02-25] MEDS: [UNRECOGNIZED DRUG - REMARK] 259 MG IV (13:14)
[2024-02-25] MEDS: CARBOplatin 580 MG in sodium chloride 0.9% 500 ML 558 MG IV (14:26)
[2024-02-25] MEDS: pegfilgrastim 6 mg/0.6 mL Kit (onpro) SUBCUT (15:37)
[2024-02-25 15:50] VITALS: BP 90/58; PULSE 70; RESP 16; TEMP 36.6; O2SAT 99
== END 2024-02-25 23:59 | disposition home or self-care (01) ==
PROVIDERS: Nurse Practitioner Family; PCP Family Medicine; Visit Provider Internal Medicine Medical Oncology
DX: Z53.9 Procedure and treatment not carried out, unspecified reason (principal); Z51.11 Encounter for antineoplastic chemotherapy; Z51.12 Encounter for antineoplastic immunotherapy; C50.812 Malignant neoplasm of overlapping sites of left female breast; Z79.899 Other long term (current) drug therapy
CPT/HCPCS: 80053; 85025; 96360; 96367; 96375; 96377; 96413; 96417; J1100; J1200; J1453; J2469; J2506; J3490; J7030; J7040; J7050; J9045; J9171; J9306; Q5112

== ENCOUNTER 2024-03-17 08:45 | Oncology outpatient (recurring) (ONCR) | payer OTHER, SELFPAY ==
[2024-03-03 13:01] VITALS: BP 105/66; PULSE 97; RESP 18; TEMP 35.9; O2SAT 98
[2024-03-03] MEDS: sodium chloride 0.9% 1,000 ML 999 ML IV (13:09)
[2024-03-03 14:14] VITALS: BP 95/58; PULSE 87; RESP 16; TEMP 36; O2SAT 93
[2024-03-06] MEDS: sodium chloride 0.9% 1,000 ML 999 ML IV (14:30)
[2024-03-06 15:38] VITALS: BP 108/64; PULSE 88; RESP 16; TEMP 36.5; O2SAT 96
--- NOTE | 2024-03-10 14:00 | XR_ITS ---
WS: [id number] DEXA (DUAL ENERGY X-RAY ABSORPTIOMETRY) Bone mineral density was performed using a Step-In machine. HISTORY: premature menopause COMPARISON: None available. Lumbar spine BMD (L1-L4): 1.188 g/cm2 T score: 0.1 Z score: 0.5 Total hip BMD: Left: 0.853 g/cm2. T score: -1.2 Z score: -0.7 Right: 0.809 g/cm2. T score: -1.6 Z score: -1.0 10 year probability of a major osteoporotic fracture is 2.4%. XR/XR DEXA axial skeleton* [id number] IMPRESSION: OSTEOPENIA based upon the WHO classification for females.
[2024-03-17 08:57] LABS: Basophils % 0.2 %; Hematocrit 28.7 % (36-47); Lymphocytes % 20.6 %; Mean Corpuscular HGB Conc 32.4 g/dL (30-55); Mean Corpuscular Hemoglobin 32.4 pg (27-33); Mean Platelet Volume 10.3 fL (7.4-10.4); Monocytes # 0.5 10^3/uL (0.2-0.9); Monocytes % 10.4 %; Neutrophils # 3.22 10^3/uL (1.8-7.7); Neutrophils % 68.6 %; Nucleated Red Blood Cells % 0 %; Platelet Count 132 10^3/cmm (157-399); Red Blood Count 2.87 10^6/uL (3.85-5.65); Red Cell Distribution Width 18.3 % (12.1-15.1)
[2024-03-17 09:12] LABS: Alanine Aminotransferase 12 U/L (0-33); Albumin Level 3.9 g/dL (3.5-5.2); Alkaline Phosphatase 44 U/L (35-105); Anion Gap 14.1 (5-19); Aspartate Amino Transferase 17 U/L (0-32); Blood Urea Nitrogen 8 mg/dL (6-20); Calcium 8.8 mg/dL (8.5-10.5); Carbon Dioxide 24 mmol/L (22-29); Chloride 108 mmol/L (98-107); Globulin 2.2 g/dL (1.3-4.6); Glomerular Filtration Rate 134.7 mL/min (90-130); Glucose 95 mg/dL (65-115); Osmolality Calculated 292 mOsm/kg (285-295); Potassium 4.1 mmol/L (3.5-5.1); Sodium 142 mmol/L (136-145); Total Bilirubin 0.2 mg/dL (0.15-1.2); Total Protein 6.1 g/dL (6.6-8.7)
--- NOTE | 2024-03-17 09:55 | N.ONRAD NP_ITS ---
Radiation Oncology New Patient Visit Patient: Penny Garcia MR#: [id number] : 1980 Age: 43Sex: Female Dictated by: Dr. Kayla Maldonado Date of Service: 03/17/2024 Referring Physician(s) : Abelardo Hancock M.D. Diagnosis: Grade 3 infiltrating ductal carcinoma of the breast stage IIa, T2 N2a status post bilateral simple mastectomies with axillary dissection on the left with 24 nodes removed. Radiotherapy to date: Summary > No prior radiation therapy. Chief Complaint / History of Present Illness: Current Medications: aprepitant 80 mg PO DAILY, dexamethasone 8 mg (2 x 4 mg) PO DIRECTED, diphenoxylate-atropine 2.5-0.025 mg (Lomotil) 2 tabs PO QID PRN, fluconazole 100 mg PO DAILY, fluticasone propionate 50 mcg/actuation (Flonase Allergy Relief) 2 sprays intranasal DAILY, levocetirizine (Xyzal) 5 mg PO DAILY PRN, lidocaine HCl 2% (Lidocaine Viscous) 5 mL mucous membrane Q6H PRN, lidocaine-prilocaine 2.5-2.5 % Apply quarter-size amount to port site 30 minutes prior to access; cover with cling wrap, loratadine 10 mg PO DAILY, lorazepam 0.5 - 1 mg (0.5 - 1 x 1 mg) PO Q6H PRN, nystatin 4 mL PO QID, olanzapine (Zyprexa) 5 mg PO DAILY, ondansetron 8 mg PO Q8H, prochlorperazine maleate (Compazine) 10 mg PO Q4H PRN, triamcinolone acetonide 0.1% 1 applic topical BID PRN, valacyclovir 500 mg PO DAILY Allergies: Sulfa (Sulfonamide Antibiotics) Allergy (Verified 02/25/24 07:51) Unknown Medical History: No previous radiation therapy. 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 Repeated 08/20/23 at [facility] Left breast at 2:00--invasive ductal carcinoma, grade 3. At 1:00- Invasive ductal carcinoma, grade . H/O breast augmentation (~2012) saline implants Family History: Mother- Hyperlipidemia, Hypertension, Thyroid disease Grandmother- Breast cancer maternal---dx 60s Paternal--- dx 60s Father Drowning, accidental Sister Factor V Leiden mutation Denies family history of Colon cancer Ovarian cancer Diabetes Heart disease Uterine cancer Stroke Social History: Smoking and tobacco/nicotine status: never used tobacco/nicotine Alcohol intake: never Current Complaints / Review of Systems: . Vital Signs: Performed on 03/17/2024 9:04 AM BMI - 19.237 kg/m2, Height - 65 in, Weight - 115.6 lbs, Temperature - 96.9 f, Pulse - 90 /min, Respiration - 16 /min, O2 Sat - 96 %, Pain - 0, Fatigue - 0 and BP - 101/ 60 mm(hg)(/low). Physical Exam: General: Patient is in no apparent distress accompanied today by her HEENT: Normocephalic atraumatic. Pupils are equal, sclera clear, extraocular muscles intact. Pulmonary: Respiratory rate is regular nonlabored Cardiovascular: Regular rate and rhythm Chest wall: Bilateral chest grande have nicely healed. She has minimal adipose tissue and no redundant skin tissue. There are no nodules ulcerations or lesions noted Abdomen: Patient is quite thin with minimal adipose tissue Extremities: Without lymphedema in the upper or lower extremities Neurological: Alert and orient x 3. Gait and speech within normal limits Psych: Affect appropriate for current situation Performance Status: 90 Pathology: Lab: Imaging: See HPI Impression: Stage IIa infiltrating ductal carcinoma the breast status post bilateral simple mastectomies with extensive delfino dissection on the left followed by MIRTHA WEBER having completed this in October 2023. Currently undergoing every 3-week infusions of Herceptin. Plan: I reviewed the sequence of events. We discussed her pathology. We reviewed how she had manage to get through her chemotherapy. 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 We reviewed the simulation process. We discussed the daily treatment regiment. Reviewed the risks and side effects both acute and long-term. This point she has a good understanding. She has an appointment tomorrow to visit with the surgeon in [place] and we will get him set up for simulation sometime later this week. We talked about some different creams she could use on her skin as well as not put anything on her skin prior to treatment. This point she is agreed to proceed. Will see her back for simulation. Plan for a course of 5 weeks Signed by: 03/17/2024 9:53:43 AM <<Signature on File>> Time spent with patient:45 CPT Code: CPT Code:
[2024-03-17] MEDS: sodium chloride 0.9% 250 ML 75 ML IV (11:08)
[2024-03-17] MEDS: acetaminophen 325 mg Tablet 650 MG PO (11:09)
[2024-03-17] MEDS: diphenhydrAMINE 25 mg Capsule PO (11:09)
[2024-03-17] MEDS: pertuzumab 420 MG in sodium chloride 0.9% 250 ML 264 MG IV (11:47)
[2024-03-17] MEDS: SODIUM CHLORIDE 0.9% IV (12:45)
[2024-03-17] MEDS: TRASTUZUMAB DTTB IV (12:45)
[2024-03-17 13:41] VITALS: BP 92/60; PULSE 82; RESP 16; TEMP 36.7; O2SAT 99
[2024-03-17 13:55] VITALS: BP 90/71; PULSE 88; RESP 16; TEMP 36.6; O2SAT 99
== END 2024-03-17 23:59 | disposition home or self-care (01) ==
PROVIDERS: PCP Family Medicine; Visit Provider Internal Medicine Medical Oncology
DX: Z53.9 Procedure and treatment not carried out, unspecified reason (principal); Z51.12 Encounter for antineoplastic immunotherapy; C50.812 Malignant neoplasm of overlapping sites of left female breast; Z17.0 Estrogen receptor positive status [ER+]; Z79.899 Other long term (current) drug therapy
CPT/HCPCS: 77080; 80053; 85025; 96360; 96413; 96417; J7030; J7050; J9306; Q5112

== ENCOUNTER 2024-03-28 11:28 | Oncology outpatient (recurring) (ONCR) | payer OTHER, SELFPAY ==
--- NOTE | 2024-03-25 16:04 | ONCRAD TMN_ITS ---
Radiation Oncology Weekly Treatment Management Patient: Jose Francis> MR#: [id number] : 1980> Attending Physician: Dr. Kayla Maldonado Date of Service: 03/25/2024 Fractions: 2 out of 25 Referring Physician(s) : Abelardo Hancock M.D. Diagnosis: C50.412 - Malignant neoplasm of upper-outer quadrant of left female breast, Diagnosed 03/17/2024 (Active) C77.3 - Secondary and unspecified malignant neoplasm of axilla and upper limb lymph nodes, Diagnosed 03/17/2024 (Active) Radiotherapy to date: Course: L chest wall, Treatment Site: L chest wall, Ref. ID: [email or web address], Energy: 15X/6X, Dose/Fx (cGy): 200, #Fx: , Dose Correction (cGy): 0, Total Dose Delivered (cGy): 400, Start Date: 03/24/2024, Elapsed Days: 1 Reason for visit: The patient is being seen today as part of their regularly scheduled weekly on treatment visits to assess for acute toxicities from radiotherapy. Review of Systems: Patient had no changes or issues Vital Signs: Performed on 03/25/2024 3:37 PM BMI - 18.904 kg/m2, Height - 65 in, Weight - 113.6 lbs, Temperature - 97.5 f, Pulse - 91 /min, Respiration - 18 /min, O2 Sat - 99 %, Pain - 0, Fatigue - 0 and BP - 111/ 66 mm(hg). Physical Exam: No changes on exam. She did put lotion on before I was able to visualize her skin today. Imaging: Radiation therapy imaging related to accurate target localization (i.e. KV, MV and CBCT) was reviewed. Appropriate changes, if any, were made to ensure treatment accuracy. Plan: Will continue with her treatments as planned Signed by: Dr. Kayla Maldonado 03/25/2024 4:03:02 PM
== END 2024-03-29 23:59 | disposition home or self-care (01) ==
PROVIDERS: PCP Family Medicine; Visit Provider Internal Medicine Medical Oncology
DX: Z53.9 Procedure and treatment not carried out, unspecified reason (principal); C50.812 Malignant neoplasm of overlapping sites of left female breast; E28.319 Asymptomatic premature menopause; C50.912 Malignant neoplasm of unspecified site of left female breast; K52.1 Toxic gastroenteritis and colitis; T45.1X5A Adverse effect of antineoplastic and immunosuppressive drugs, initial encounter
CPT/HCPCS: 77290; 77295; 77300; 77334; 77387; 77412

== ENCOUNTER 2024-04-09 09:00 | Oncology outpatient (recurring) (ONCR) | payer OTHER, SELFPAY ==
--- NOTE | 2024-04-01 15:53 | ONCRAD TMN_ITS ---
Radiation Oncology Weekly Treatment Management Patient: Penny Garcia MR#: [id number] : 1980 Attending Physician: Dr. Kayla Maldonado Date of Service: 04/01/2024 . Fractions: 6 out of 25 Referring Physician(s) : Abelardo Hancock M.D. Diagnosis: C50.412 - Malignant neoplasm of upper-outer quadrant of left female breast, Diagnosed 03/17/2024 (Active) C77.3 - Secondary and unspecified malignant neoplasm of axilla and upper limb lymph nodes, Diagnosed 03/17/2024 (Active) Radiotherapy to date: Course: L chest wall, Treatment Site: L chest wall, Ref. ID: [email or web address], Energy: 15X/6X, Dose/Fx (cGy): 200, #Fx: , Dose Correction (cGy): 0, Total Dose Delivered (cGy): 1,200, Start Date: 03/24/2024, Elapsed Days: 8 Reason for visit: The patient is being seen today as part of their regularly scheduled weekly on treatment visits to assess for acute toxicities from radiotherapy. Review of Systems: Patient has noticed no changes in the way her skin feels Vital Signs: Performed on 04/01/2024 3:32 PM BMI - 19.187 kg/m2, Height - 65 in, Weight - 115.3 lbs, Temperature - 97 f, Pulse - 99 /min, Respiration - 16 /min, O2 Sat - 97 %, Pain - 0, Fatigue - 0 and BP - 118/ 58 mm(hg)(/low). Physical Exam: On exam it appears to be mildly erythematous Imaging: Radiation therapy imaging related to accurate target localization (i.e. KV, MV and CBCT) was reviewed. Appropriate changes, if any, were made to ensure treatment accuracy. Plan: Will continue with treatments as planned Signed by: Dr. Kayla Maldonado 04/01/2024 3:52:18 PM
--- NOTE | 2024-04-08 15:49 | ONCRAD TMN_ITS ---
Radiation Oncology Weekly Treatment Management Patient: Penny Garcia MR#: [id number] : 1980 Attending Physician: Dr. Kayla Maldonado Date of Service: 04/08/2024 Fractions: Referring Physician(s) : Abelardo Hancock M.D. Diagnosis: C50.412 - Malignant neoplasm of upper-outer quadrant of left female breast, Diagnosed 03/17/2024 (Active) C77.3 - Secondary and unspecified malignant neoplasm of axilla and upper limb lymph nodes, Diagnosed 03/17/2024 (Active) Radiotherapy to date: Course: L chest wall, Treatment Site: L chest wall, Ref. ID: [email or web address], Energy: 15X/6X, Dose/Fx (cGy): 200, #Fx: , Dose Correction (cGy): 0, Total Dose Delivered (cGy): 2,200, Start Date: 03/24/2024, Elapsed Days: 15 Reason for visit: The patient is being seen today as part of their regularly scheduled weekly on treatment visits to assess for acute toxicities from radiotherapy. Review of Systems: She has noticed her skin is getting a little more sensitive Vital Signs: Performed on 04/08/2024 3:37 PM BMI - 19.104 kg/m2, Height - 65 in, Weight - 114.8 lbs, Temperature - 96.9 f, Pulse - 60 /min, Respiration - 16 /min, O2 Sat - 100 %, Pain - 0, Fatigue - 0 and BP - 109/ 69 mm(hg). Physical Exam: On exam her skin is mildly erythematous. There is no moist or dry desquamation. Imaging: Radiation therapy imaging related to accurate target localization (i.e. KV, MV and CBCT) was reviewed. Appropriate changes, if any, were made to ensure treatment accuracy. Plan: Will continue with her treatments as planned. She will continue to use her cream on her skin. Signed by: Dr. Kayla Maldonado 04/08/2024 3:48:41 PM
[2024-04-09] VITALS (8 sets, daily range): BP systolic 106–142; BP diastolic 65–84; PULSE 64–107; RESP 16–20; TEMP 36.7–37; O2SAT 97–100
[2024-04-09 09:33] LABS: Basophils % 0.8 %; Eosinophils # 0.5 10^3/uL (0.0-0.8); Eosinophils % 14.3 %; Hematocrit 33.6 % (36-47); Lymphocytes % 28.4 %; Mean Corpuscular HGB Conc 33.3 g/dL (30-55); Mean Corpuscular Hemoglobin 32.6 pg (27-33); Mean Corpuscular Volume 97.7 fl (85-98); Mean Platelet Volume 9.3 fL (7.4-10.4); Monocytes # 0.4 10^3/uL (0.2-0.9); Monocytes % 11.5 %; Nucleated Red Blood Cells % 0 %; Platelet Count 150 10^3/cmm (157-399); Red Blood Count 3.44 10^6/uL (3.85-5.65); White Blood Count 3.56 10^3/uL (3.29-11.43)
[2024-04-09 09:53] LABS: Alanine Aminotransferase 30 U/L (0-33); Albumin Level 4.2 g/dL (3.5-5.2); Alkaline Phosphatase 48 U/L (35-105); Anion Gap 11.9 (5-19); Aspartate Amino Transferase 40 U/L (0-32); Blood Urea Nitrogen 10 mg/dL (6-20); Carbon Dioxide 28 mmol/L (22-29); Chloride 104 mmol/L (98-107); Globulin 2.4 g/dL (1.3-4.6); Glomerular Filtration Rate 134.7 mL/min (90-130); Glucose 98 mg/dL (65-115); Osmolality Calculated 289 mOsm/kg (285-295); Potassium 3.9 mmol/L (3.5-5.1); Sodium 140 mmol/L (136-145); Total Bilirubin 0.3 mg/dL (0.15-1.2); Total Protein 6.6 g/dL (6.6-8.7)
[2024-04-09] MEDS: acetaminophen 325 mg Tablet 650 MG PO (10:45)
[2024-04-09] MEDS: diphenhydrAMINE 25 mg Capsule PO (10:45)
[2024-04-09] MEDS: sodium chloride 0.9% 250 ML 75 ML IV (10:45)
[2024-04-09] MEDS: pertuzumab 420 MG in sodium chloride 0.9% 250 ML 264 MG IV (11:19)
[2024-04-09] MEDS: TRASTUZUMAB DTTB IV (12:04)
[2024-04-09] MEDS: SODIUM CHLORIDE 0.9% IV (12:04)
[2024-04-09] MEDS: methylPREDNISolone sod succ 125 mg/2 mL INJ 60 MG IVP ×2 (12:44→12:49)
[2024-04-09] MEDS: sodium chloride 0.9% 500 ML 999 ML IV (12:45)
[2024-04-09] MEDS: diphenhydrAMINE 50 mg/mL SDV 1mL 25 MG IVP (12:46)
--- NOTE | 2024-04-09 13:21 | ECG_ITS ---
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
--- NOTE | 2024-04-09 13:34 | PC.NURSE ---
patient reports congestion is resolved, hives itching on palms and abdomen but redness has decreased overall. Patient reports no longer having throat tightness. Patient now reports chest tenderness, EKG has been reviewed with provider.
--- NOTE | 2024-04-09 15:10 | PC.NURSE ---
Dr. Hancock informed that patient is no longer symptomatic. Patient is able to be discharged home with ER precautions. Patient verbalized understanding and denies any concerns at this time.
== END 2024-04-09 23:59 | disposition home or self-care (01) ==
PROVIDERS: PCP Family Medicine; Visit Provider Internal Medicine Medical Oncology
DX: C50.812 Malignant neoplasm of overlapping sites of left female breast; Z53.9 Procedure and treatment not carried out, unspecified reason; Z51.0 Encounter for antineoplastic radiation therapy; Z51.12 Encounter for antineoplastic immunotherapy; R07.9 Chest pain, unspecified; Z79.69 Long term (current) use of other immunomodulators and immunosuppressants; Z79.899 Other long term (current) drug therapy; Z79.52 Long term (current) use of systemic steroids
CPT/HCPCS: 77336; 77387; 77412; 80053; 85025; 93005; 96361; 96375; 96413; 96417; J1200; J2405; J2919; J7040; J7050; J9306; Q5112

== ENCOUNTER 2024-04-28 15:30 | Oncology outpatient (recurring) (ONCR) | payer OTHER, SELFPAY ==
--- NOTE | 2024-04-16 08:19 | ONCRAD TMN_ITS ---
Radiation Oncology Weekly Treatment Management Patient: Jose Francis> MR#: [id number] : 1980> Attending Physician: Dr. Kayla Maldonado Date of Service: 04/15/2024 Fractions: 16 out of 25 Referring Physician(s) : Abelardo Hancock M.D. Diagnosis: C50.412 - Malignant neoplasm of upper-outer quadrant of left female breast, Diagnosed 03/17/2024 (Active) C77.3 - Secondary and unspecified malignant neoplasm of axilla and upper limb lymph nodes, Diagnosed 03/17/2024 (Active) Radiotherapy to date: Course: L chest wall, Treatment Site: L chest wall, Ref. ID: [email or web address], Energy: 15X/6X, Dose/Fx (cGy): 200, #Fx: , Dose Correction (cGy): 0, Total Dose Delivered (cGy): 3,200, Start Date: 03/24/2024, Elapsed Days: 22 Reason for visit: The patient is being seen today as part of their regularly scheduled weekly on treatment visits to assess for acute toxicities from radiotherapy. Review of Systems: Patient skin has become increasingly erythematous. It is not pruritic. It is a little tender this week. Vital Signs: Performed on 04/15/2024 3:31 PM BMI - 18.738 kg/m2, Height - 65 in, Weight - 112.6 lbs, Temperature - 97.3 f, Pulse - 83 /min, Respiration - 18 /min, O2 Sat - 94 % (low), Pain - 0, Fatigue - 0 and BP - 113/ 73 mm(hg). Physical Exam: On exam her skin is erythematous. It is more so in the upper inner quadrant. There is no areas of moist or dry desquamation. Imaging: Radiation therapy imaging related to accurate target localization (i.e. KV, MV and CBCT) was reviewed. Appropriate changes, if any, were made to ensure treatment accuracy. Plan: She will continue to care for the skin as she has been doing. She will use cortisone if it becomes pruritic. She is allergic to sulfa so we will be able to use Silvadene. I encouraged her to use the aloe vera. Will continue with her treatments. Signed by: Dr. Kayla Maldonado 04/16/2024 8:18:29 AM
--- NOTE | 2024-04-22 16:19 | ONCRAD TMN_ITS ---
Radiation Oncology Weekly Treatment Management Patient: Penny Garcia MR#: [id number] : 1980 Attending Physician: Dr. Jovany Lopes Date of Service: 04/22/2024 Referring Physician(s) : Abelardo Hancock M.D. Diagnosis: C50.412 - Malignant neoplasm of upper-outer quadrant of left female breast, Diagnosed 03/17/2024 (Active) C77.3 - Secondary and unspecified malignant neoplasm of axilla and upper limb lymph nodes, Diagnosed 03/17/2024 (Active) Radiotherapy to date: Course: L chest wall, Treatment Site: L chest wall, Ref. ID: [email or web address], Energy: 15X/6X, Dose/Fx (cGy): 200, #Fx: 21 / 25Dose Correction (cGy): 0, Total Dose Delivered (cGy): 4,200, Start Date: 03/24/2024, Elapsed Days: 29 Reason for visit: The patient is being seen today as part of their regularly scheduled weekly on treatment visits to assess for acute toxicities from radiotherapy. Review of Systems: Notes some superior left chest itchiness. Otherwise she is doing well with good energy level and normal activities. She is using Curel topically. Vital Signs: Performed on 04/22/2024 3:39 PM BMI - 18.771 kg/m2, Height - 65 in, Weight - 112.8 lbs, Temperature - 97.1 f, Pulse - 65 /min, Respiration - 16 /min, O2 Sat - 99 %, Pain - 0, Fatigue - 0 and BP - 111/ 61 mm(hg)(/low). Physical Exam: General moderate erythema of left chest wall. No desquamation. Imaging: Radiation therapy imaging related to accurate target localization (i.e. KV, MV and CBCT) was reviewed. Appropriate changes, if any, were made to ensure treatment accuracy. Plan: Good tolerance of treatment. Continue as planned. Signed by: Dr. Jovany Lopes 04/22/2024 4:17:52 PM
--- NOTE | 2024-04-29 08:02 | N.ONRD TS_ITS ---
Radiation Oncology Treatment Summary Patient: Penny Garcia MR#: [id number] : 1980 Age: 43 Sex: Female Dictated by: Micah Taylor Date of Service: 04/28/2024 Referring Physician(s) : Abelardo Hancock M.D. Diagnosis: C50.412 - Malignant neoplasm of upper-outer quadrant of left female breast, Diagnosed 03/17/2024 (Active) C77.3 - Secondary and unspecified malignant neoplasm of axilla and upper limb lymph nodes, Diagnosed 03/17/2024 (Active) Radiotherapy to Date: Course: L chest wall, Treatment Site: L chest wall, Ref. ID: [id number], Energy: 15X/6X, Dose/Fx (cGy): 200, #Fx: 25 / 25, Dose Correction (cGy): 0, Total Dose Delivered (cGy): 5,000, Start Date: 03/24/2024, End Date: 04/28/2024, Elapsed Days: 35 PT HX: Stage IIa infiltrating ductal carcinoma the breast status post bilateral simple mastectomies with extensive delfino dissection on the left followed by [facility] having completed this in October 2023. Currently undergoing every 3-week infusions of Herceptin. Clinical Summary: The patient tolerated RT well. Mastectomy scar on the left showed more alert erythema. No moist desquamation noted. Plan: End of treatment today. Continue on the above medication until the skin reaction resolves. Follow up in one month. Signed by: Micah Taylor>04/29/2024 8:02:07 AM <<Signature on File>>
== END 2024-04-28 23:59 | disposition home or self-care (01) ==
PROVIDERS: PCP Family Medicine; Visit Provider Radiology Radiation Oncology
DX: Z51.0 Encounter for antineoplastic radiation therapy; C50.412 Malignant neoplasm of upper-outer quadrant of left female breast; C77.3 Secondary and unspecified malignant neoplasm of axilla and upper limb lymph nodes
CPT/HCPCS: 77336; 77387; 77412

== ENCOUNTER 2024-05-01 08:00 | Oncology outpatient (recurring) (ONCR) | payer OTHER, SELFPAY ==
[2024-04-30 09:50] LABS: Basophils % 0.4 %; Eosinophils # 0.2 10^3/uL (0.0-0.8); Eosinophils % 2.9 %; Hematocrit 34.8 % (36-47); Lymphocytes # 0.8 10^3/uL (0.8-4.8); Lymphocytes % 14.8 %; Mean Corpuscular HGB Conc 34.5 g/dL (30-55); Mean Corpuscular Hemoglobin 31.8 pg (27-33); Mean Corpuscular Volume 92.3 fl (85-98); Mean Platelet Volume 9.6 fL (7.4-10.4); Monocytes # 0.5 10^3/uL (0.2-0.9); Monocytes % 9.2 %; Neutrophils # 3.77 10^3/uL (1.8-7.7); Neutrophils % 72.3 %; Nucleated Red Blood Cells % 0 %; Platelet Count 122 10^3/cmm (157-399); Red Blood Count 3.77 10^6/uL (3.85-5.65); Red Cell Distribution Width 12.7 % (12.1-15.1); White Blood Count 5.21 10^3/uL (3.29-11.43)
[2024-04-30 10:06] LABS: Alanine Aminotransferase 15 U/L (0-33); Albumin Level 4.3 g/dL (3.5-5.2); Alkaline Phosphatase 46 U/L (35-105); Anion Gap 12.7 (5-19); Aspartate Amino Transferase 20 U/L (0-32); Blood Urea Nitrogen 10 mg/dL (6-20); Carbon Dioxide 27 mmol/L (22-29); Chloride 105 mmol/L (98-107); Globulin 2.3 g/dL (1.3-4.6); Glomerular Filtration Rate 134.7 mL/min (90-130); Glucose 120 mg/dL (65-115); Osmolality Calculated 292 mOsm/kg (285-295); Potassium 3.7 mmol/L (3.5-5.1); Sodium 141 mmol/L (136-145); Total Bilirubin 0.4 mg/dL (0.15-1.2); Total Protein 6.6 g/dL (6.6-8.7)
[2024-04-30] MEDS: sodium chloride 0.9% 250 ML 75 ML IV (11:33)
[2024-04-30] MEDS: acetaminophen 325 mg Tablet 650 MG PO (11:35)
[2024-04-30] MEDS: diphenhydrAMINE 25 mg Capsule PO (11:36)
[2024-04-30 12:15] VITALS: BP 110/66; PULSE 85; RESP 16; TEMP 37.1; O2SAT 99
[2024-04-30] MEDS: pertuzumab 420 MG in sodium chloride 0.9% 250 ML 264 MG IV (12:16)
[2024-04-30 14:14] VITALS: BP 108/68; PULSE 90; RESP 16; TEMP 36.5; O2SAT 100
[2024-05-01 08:24] VITALS: BP 113/77; PULSE 87; TEMP 36.4; O2SAT 99
[2024-05-01] MEDS: acetaminophen 325 mg Tablet 650 MG PO (08:29)
[2024-05-01] MEDS: sodium chloride 0.9% 250 ML IV (08:37)
[2024-05-01] MEDS: diphenhydrAMINE 50 mg/mL SDV 1mL 25 MG IVP ×2 (08:38→10:18)
[2024-05-01] MEDS: famotidine 20 mg/2 mL INJ IVP ×2 (08:41→10:52)
[2024-05-01] MEDS: dexamethasone 10 mg/mL INJ 12 MG IVP (08:45)
[2024-05-01] MEDS: SODIUM CHLORIDE 0.9% IV (09:44)
[2024-05-01] MEDS: TRASTUZUMAB DTTB IV (09:44)
[2024-05-01] MEDS: ondansetron 2 mg/ML SDV 2 mL 8 MG IVP (10:22)
[2024-05-01] MEDS: sodium chloride 0.9% 500 ML 999 ML IV (10:25)
--- NOTE | 2024-05-01 10:53 | ECG_ITS ---
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 Measurements Intervals [place] Rate: 70 P: 46 DC: 148 QRS: 61 QRSD: 91 T: 77 QT: 397 QTc: 430 Interpretive Statements SINUS RHYTHM Compared to ECG 04/09/2024 13:21:37 No significant changes Electronically Signed On 05-01-2024 18:17:04 CDT by Nadeem Hall M.D. [id number]
[2024-05-01 12:26] VITALS: BP 107/73; PULSE 76; TEMP 36.4; O2SAT 99
--- NOTE | 2024-05-01 13:39 | PC.NURSE ---
Pt received infusion of Trastuzumab 314mg. Pt stated she was beginning to feel nauseaus with epigastric pain which has indicated an infusion reaction in past infusions with this medication. Medication was stopped at 1015. Mike Greenfield NP notified. Benadryl 25mg given at 1018. Zofran 8mg given at 1022 per verbal order from Mike Greenfield NP. Vitals 96.9, 99% O2, HR 81, BP 117/74. Verbal order for pepcid 20mg, given at 1052. NS infusing at 500mLs/hr. Continued monitoring pt with fluids running. Pt discharged at approx. 1200. Pt states she feels 'normal' and is able to go home.
== END 2024-05-01 23:59 | disposition home or self-care (01) ==
PROVIDERS: Internal Medicine Medical Oncology; PCP Family Medicine; Visit Provider Radiology Radiation Oncology
DX: C50.812 Malignant neoplasm of overlapping sites of left female breast; Z53.9 Procedure and treatment not carried out, unspecified reason; Z51.12 Encounter for antineoplastic immunotherapy; I49.8 Other specified cardiac arrhythmias
CPT/HCPCS: 77336; 80053; 85025; 93005; 96375; 96376; 96413; J1100; J1200; J2405; J3490; J7040; J7050; J9306; Q5112

== ENCOUNTER 2024-05-28 15:23 | Oncology outpatient (recurring) (ONCR) | payer OTHER, SELFPAY ==
[2024-05-21 14:16] LABS: Basophils % 0.6 %; Eosinophils # 0.2 10^3/uL (0.0-0.8); Eosinophils % 4.4 %; Hematocrit 34.6 % (36-47); Lymphocytes # 1.2 10^3/uL (0.8-4.8); Lymphocytes % 35.2 %; Mean Corpuscular HGB Conc 34.4 g/dL (30-55); Mean Corpuscular Hemoglobin 31.5 pg (27-33); Mean Corpuscular Volume 91.5 fl (85-98); Mean Platelet Volume 9.1 fL (7.4-10.4); Monocytes # 0.4 10^3/uL (0.2-0.9); Monocytes % 12.4 %; Neutrophils # 1.59 10^3/uL (1.8-7.7); Neutrophils % 47.1 %; Nucleated Red Blood Cells % 0 %; Platelet Count 148 10^3/cmm (157-399); Red Blood Count 3.78 10^6/uL (3.85-5.65); Red Cell Distribution Width 11.8 % (12.1-15.1); White Blood Count 3.38 10^3/uL (3.29-11.43)
[2024-05-21 14:28] LABS: Alanine Aminotransferase 17 U/L (0-33); Albumin Level 4.2 g/dL (3.5-5.2); Alkaline Phosphatase 49 U/L (35-105); Aspartate Amino Transferase 20 U/L (0-32); Blood Urea Nitrogen 12 mg/dL (6-20); Calcium 8.7 mg/dL (8.5-10.5); Carbon Dioxide 27 mmol/L (22-29); Chloride 102 mmol/L (98-107); Creatinine Clr Calc Pharmacy 126.9455; Globulin 2.2 g/dL (1.3-4.6); Glomerular Filtration Rate 134.7 mL/min (90-130); Glucose 96 mg/dL (65-115); Osmolality Calculated 286 mOsm/kg (285-295); Sodium 138 mmol/L (136-145); Total Bilirubin 0.3 mg/dL (0.15-1.2); Total Protein 6.4 g/dL (6.6-8.7)
[2024-05-21] MEDS: diphenhydrAMINE 25 mg Capsule PO (15:55)
[2024-05-21] MEDS: sodium chloride 0.9% 250 ML 75 ML IV (15:55)
[2024-05-21] MEDS: acetaminophen 325 mg Tablet 650 MG PO (15:55)
[2024-05-21] MEDS: pertuzumab 420 MG in sodium chloride 0.9% 250 ML 264 MG IV (16:22)
--- NOTE | 2024-05-26 10:00 | USCV_ITS ---
Penny Garcia Age: 43 Gender: F : 1980 Exam Date: 05/26/2024 09:51 Ordering Phys: Ashlie Greenfield APRN Technologist: CT Exam Location: [facility] [place]_ Indication: BP: 100 / 70 HR: Rhythm: Sinus Technical Quality: Adequate MEASUREMENTS (Male / Female) Normal Values 2D ECHO LVOT Diameter 2.0 cm LV Ejection Fraction MOD 4C 69.4 % LV Ejection Fraction MOD 2C 70.4 % LV Ejection Fraction 2C AL 70.7 % LA Diameter 1.6 cm RA Systolic Volume 4C AL 25.9 ml RA Systolic Volume 4C MOD 26.2 ml LA Sys Volume AL 21.9 cm cubed LA Sys Volume Index AL 14.1 cm cubed/m squared Aorta at Sinotubular Diameter 2.6 cm IVC Diameter 1.8 cm M-MODE LA Ao Ratio MM 1.1 AV Cusp Separation MM 2.0 cm FINDINGS Left Ventricle Normal left ventricular size, systolic function and wall thickness, with no regional wall motion abnormalities. Estimated LVEF normal at 65%. Right Ventricle Normal right ventricular size and systolic function. Right Atrium Normal right atrial size. Left Atrium Normal left atrial size. Mitral Valve Structurally normal mitral valve. No mitral valve stenosis. No mitral valve regurgitation. Aortic Valve Structurally normal trileaflet aortic valve. No aortic valve stenosis. No aortic valve regurgitation. Tricuspid Valve Structurally normal tricuspid valve. Pulmonic Valve Structurally normal pulmonic valve. Trace pulmonary valve regurgitation. Pericardium No pericardial effusion. Aorta Normal size aortic root and proximal ascending aorta. IVC Normal inferior vena cava. CONCLUSIONS Normal left ventricle systolic function. LVEF normal at 65%. Normal chamber sizes. No significant valvular abnormality noted. Normal right heart and pulmonary pressures. Justina Silva MD (Electronically Signed) Final Date: 27 May 2024 15:15 S
--- NOTE | 2024-05-28 16:50 | ONCRAD EPV_ITS ---
Radiation Oncology Established Patient Visit Patient: Penny Garcia [id number] : 1980 Age: 43 Sex: Female Dictated by: Dr. Jovany Lopes Date of Service: 05/28/2024 Referring Physician(s) : Abelardo Hancock M.D. Diagnosis: C50.412 - Malignant neoplasm of upper-outer quadrant of left female breast, Diagnosed 03/17/2024 (Active) C77.3 - Secondary and unspecified malignant neoplasm of axilla and upper limb lymph nodes, Diagnosed 03/17/2024 (Active) Radiotherapy to Date: Course: L chest wall, Treatment Site: L chest wall, Ref. ID: [id number], Energy: 15X/6X, Dose/Fx (cGy): 200 #Fx: 25 / 25, Dose Correction (cGy): 0, Total Dose Delivered (cGy): 5,000, Start Date: 03/24/2024, End Date: 04/28/2024, Elapsed Days: 35 Current History: She is doing well. 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 Left chest wall has healed well. Eating ok. Tolerating tamoxifen well. Not interested in switching to AI as recommended in the past by med onc. She will see her woman???s health physician tomorrow. Vital Signs: Performed on 05/28/2024 3:29 PM BMI - 19.57 kg/m2, Height - 65 in, Weight - 117.6 lbs, Temperature - 97.3 f, Pulse - 88 /min, Respiration - 16 /min, O2 Sat - 98 %, Pain - 0, Fatigue - 0 and BP - 108/ 52 mm(hg)(/low). Physical Exam: General: Alert and oriented x 3. No acute distress. Resolving alopecia. Left chest wall well healed with minimal residual tanning and mild erythema. Arm full range of motion. No arm edema. Performance Status: ECOG 0 Lab: None pending. 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 Impression: High risk st II IDC of the left breast. Doing well post chemo and chest wall radiation. Follow-up in the future with med onc. Follow-up here PRN. Signed by: 05/28/2024 4:49:17 PM <<Signature on File>> Time spent with patient: CPT Code: CPT Code:
== END 2024-05-29 23:59 | disposition home or self-care (01) ==
PROVIDERS: Nurse Practitioner Family; PCP Family Medicine; Visit Provider Radiology Radiation Oncology
DX: Z53.9 Procedure and treatment not carried out, unspecified reason (principal)
CPT/HCPCS: 80053; 85025; 93308; 96413; J7050; J9306

== ENCOUNTER 2024-06-11 10:38 | Oncology outpatient (recurring) (ONCR) | payer OTHER, SELFPAY ==
[2024-06-11 11:16] LABS: Basophils % 1.2 %; Eosinophils # 0.1 10^3/uL (0.0-0.8); Eosinophils % 4.2 %; Hematocrit 35.9 % (36-47); Lymphocytes # 1.1 10^3/uL (0.8-4.8); Lymphocytes % 32.7 %; Mean Corpuscular Hemoglobin 30.3 pg (27-33); Mean Corpuscular Volume 89.3 fl (85-98); Mean Platelet Volume 9.3 fL (7.4-10.4); Monocytes # 0.4 10^3/uL (0.2-0.9); Monocytes % 12.2 %; Neutrophils # 1.67 10^3/uL (1.8-7.7); Neutrophils % 49.7 %; Nucleated Red Blood Cells % 0 %; Platelet Count 151 10^3/cmm (157-399); Red Blood Count 4.02 10^6/uL (3.85-5.65); Red Cell Distribution Width 11.5 % (12.1-15.1); White Blood Count 3.36 10^3/uL (3.29-11.43)
[2024-06-11 11:36] LABS: Alanine Aminotransferase 15 U/L (0-33); Albumin Level 4.3 g/dL (3.5-5.2); Alkaline Phosphatase 48 U/L (35-105); Anion Gap 13.7 (5-19); Aspartate Amino Transferase 20 U/L (0-32); Blood Urea Nitrogen 10 mg/dL (6-20); Calcium 8.8 mg/dL (8.5-10.5); Carbon Dioxide 26 mmol/L (22-29); Chloride 105 mmol/L (98-107); Creatinine Clr Calc Pharmacy 127.3614; Globulin 2.4 g/dL (1.3-4.6); Glomerular Filtration Rate 134.7 mL/min (90-130); Glucose 97 mg/dL (65-115); Osmolality Calculated 291 mOsm/kg (285-295); Potassium 3.7 mmol/L (3.5-5.1); Sodium 141 mmol/L (136-145); Total Bilirubin 0.3 mg/dL (0.15-1.2); Total Protein 6.7 g/dL (6.6-8.7)
[2024-06-11] MEDS: sodium chloride 0.9% 250 ML 75 ML IV (12:45)
[2024-06-11] MEDS: acetaminophen 325 mg Tablet 650 MG PO (12:48)
[2024-06-11] MEDS: diphenhydrAMINE 25 mg Capsule PO (12:49)
[2024-06-11 13:03] LABS: 25 Hydroxy Vitamin D 37 ng/mL (30-100)
[2024-06-11] MEDS: pertuzumab 420 MG in sodium chloride 0.9% 250 ML 264 MG IV (13:25)
[2024-06-11] MEDS: flu vacc pf 24-25 (6 mos+) SYRINGE 45 MCG IM (14:13)
[2024-06-11 15:02] VITALS: BP 105/66; PULSE 77; RESP 16; TEMP 36.6; O2SAT 99
== END 2024-06-28 23:59 | disposition home or self-care (01) ==
PROVIDERS: Internal Medicine; Nurse Practitioner Family; PCP Family Medicine; Visit Provider Radiology Radiation Oncology
DX: C50.812 Malignant neoplasm of overlapping sites of left female breast; Z79.899 Other long term (current) drug therapy; Z51.11 Encounter for antineoplastic chemotherapy; Z23 Encounter for immunization
CPT/HCPCS: 80053; 82306; 85025; 90471; 90686; 96413; J7050; J9306

== ENCOUNTER 2024-07-01 17:06 | Observation (INO) | payer OTHER, SELFPAY ==
--- NOTE | 2024-06-23 09:52 | P.ANESASSM_ITS ---
Pre-Anesthetic Assessment Height/Weight: Height 1.65 m Operation Date: 07/01/24 12:50 Proposed Procedures p Total Vaginal Hysterectomy 13363, C50.812(Not Applicable) - Neymar Mcallister MD s Salpingo-Oophorectomy (Vaginal)(Bilateral) - Neymar Mcallister MD Familial anesthetic complications: None Was Beta Kayla taken within 24 hours: N/A Was Clonidine taken within 24 hours: N/A Social No alcohol and No tobacco Exam alert, oriented x 3, clear to auscultation bilaterally and regular rate & rhythm Airway Mallampati: Class I Dentition: other (Upper L and lower R missing) [facility] [place] [place] Anesthetic Plan ASA status: 3 Anesthesia: General Risk of > 500 ml blood loss (7ml/kg in children): No Medications/Allergies Home Medications Medication Instructions Recorded Confirmed Last Taken Type levocetirizine 5 mg tablet (Xyzal) 5 mg PO DAILY PRN allergy symptoms 11/29/22 06/23/24 06/23/24 Rx #60 tabs fluticasone propionate 50 2 spray intranasal DAILY 11/08/23 06/23/24 Unknown History mcg/actuation nasal spray,suspension (Flonase Allergy Relief) diphenoxylate-atropine 2.5 2 tab PO QID PRN diarrhea #240 tabs 02/04/24 06/23/24 Unknown Rx mg-0.025 mg tablet (Lomotil) lidocaine-prilocaine 2.5 %-2.5 % 1 applic topical .COMPLEX #30 grams 03/17/24 06/23/24 Unknown Rx topical cream tamoxifen 20 mg tablet 20 mg PO DAILY #30 tabs 05/21/24 06/23/24 06/23/24 Rx pertuzumab 420 mg/14 mL (30 mg/mL) 420 mg IV Q21D 06/13/24 06/23/24 06/11/24 History intravenous solution (Perjeta) ytncleri-nzy-Wi-FA 1 mg 1 tab PO DAILY 06/23/24 06/23/24 06/23/24 History tablet Allergies Allergy/AdvReac Type Severity Reaction Status Date / Time Sulfa (Sulfonamide Allergy ALGY-Rash Verified 06/23/24 09:23 Antibiotics) trastuzumab [From Herceptin] Allergy ALGY-Swell Verified 06/23/24 08:05 Lip/Tongue/Throat PFSH Anesthesia Medical History (Updated 06/23/24 @ 08:07 by Obed Herrera) Breast cancer Hypothyroid only during ; and managed with lowest doses. Low vitamin D level Surgical History Port-A-Cath in place History of lymph node dissection of left axilla (09/25/23) Bilateral mastectomy with left axillary sentinel lymph node biopsy History of bilateral mastectomy (09/11/23) H/O breast biopsy 2022 at [facility] Repeated 08/20/23 at [facility] Left breast at 2:00--invasive ductal carcinoma, grade 3. At 1:00- Invasive ductal carcinoma, grade . H/O breast augmentation (~2012) saline implants Family History Mother Hyperlipidemia Hypertension Thyroid disease Grandmother Breast cancer maternal---dx 60s Paternal--- dx 60s Father Drowning, accidental Sister Factor V Leiden mutation Denies family history of Colon cancer Ovarian cancer Diabetes Heart disease Uterine cancer Stroke Social History Smoking and tobacco/nicotine status: never used tobacco/nicotine Alcohol intake: never Data Anesthesia Cardiac Studies: Echocardiogram 01/17/24 Echocardiogram Limited Views 05/26/24
--- NOTE | 2024-06-23 09:56 | SUR.PREOP ---
Patient had CBC and CMP ordered for pre op visit today. Patient says she usually uses lidocaine on her port prior to it being accessed and she did not do that today. She also had CBC/CMP results from 06/11 which were good. The patient stated she preferred to have the labwork done when she comes back for day of surgery preop when she can use her lidocaine.
[2024-06-23 10:58] LABS: Bilirubin Urine Negative (Negative); Blood Urine Negative (Negative); Glucose Urine UA Negative (Normal); Ketones Urine Negative (Negative); Leukocyte Esterase Urine Negative (Negative); Nitrate Urine Negative (Negative); Protein Urine Negative (Negative); Specific Gravity, Urine 1.012 (1.005-1.030); Urine Appearance Clear (CLEAR); Urine Color Yellow (Yellow)
[2024-06-23 11:03] LABS: Add Urine Microscopic? YES; Bacteria Urine None Seen /hpf; Hyaline Casts Urine 0-4 /lpf; RBC Urine 0-2 /hpf (0-2); Squamous Epithelial Cell Urine 0-5 /hpf (0-5); WBC Urine 0-5 /hpf (0-5)
[2024-06-23 21:44] LABS: OR HCG Qualitative Urine Negative (Negative)
[2024-07-01] VITALS (16 sets, daily range): BP systolic 103–124; BP diastolic 53–75; PULSE 64–89; RESP 16–18; TEMP 36.1–37.1; O2SAT 94–100; BMI 19.4
[2024-07-01] MEDS: enoxaparin 30 mg/0.3 mL Syringe SUBCUT (13:34)
[2024-07-01] MEDS: scopolamine 1.5 Patch 1 PATCH TRANSDERMA (13:35)
[2024-07-01] MEDS: metroNIDAZOLE IV 500 MG/100 ML PREMIX 100 MG IV (13:35)
[2024-07-01] MEDS: sodium chloride 0.9% 500 ML IV (13:36)
[2024-07-01] MEDS: sodium chloride 0.9% 1,000 ML 30 ML IV (13:36)
[2024-07-01] MEDS: ondansetron 2 mg/ML SDV 2 mL 4 MG IVP (13:52)
--- NOTE | 2024-07-01 13:55 | W.PM.OPSUD ---
Surgery/Procedure H&P Update DATE OF PROCEDURE: July 01, 2024 DATE H&P PERFORMED: 06/13/24 H&P UPDATE INFORMATION: I have reviewed H&P completed within last 30 days, I have examined patient prior to procedure and No changes to prior documentation PREOP DIAGNOSIS: breast cancer PLANNED PROCEDURE: Operation Date: 07/01/24 14:15 Proposed Procedures p Total Vaginal Hysterectomy 93030, C50.812(Not Applicable) - Neymar Mcallister MD s Salpingo-Oophorectomy (Vaginal)(Bilateral) - Neymar Mcallister MD
[2024-07-01 14:01] LABS: Basophils % 0.5 %; Eosinophils # 0.2 10^3/uL (0.0-0.8); Eosinophils % 3.7 %; Hematocrit 34.1 % (36-47); Lymphocytes # 1.5 10^3/uL (0.8-4.8); Lymphocytes % 36.1 %; Mean Corpuscular HGB Conc 35.2 g/dL (30-55); Mean Corpuscular Hemoglobin 30.8 pg (27-33); Mean Corpuscular Volume 87.4 fl (85-98); Mean Platelet Volume 9.2 fL (7.4-10.4); Monocytes # 0.4 10^3/uL (0.2-0.9); Monocytes % 8.7 %; Neutrophils # 2.03 10^3/uL (1.8-7.7); Neutrophils % 50.5 %; Nucleated Red Blood Cells % 0 %; Platelet Count 152 10^3/cmm (157-399); White Blood Count 4.02 10^3/uL (3.29-11.43)
[2024-07-01 14:04] LABS: Alanine Aminotransferase 10 U/L (0-33); Alkaline Phosphatase 41 U/L (35-105); Anion Gap 14.4 (5-19); Aspartate Amino Transferase 14 U/L (0-32); Blood Urea Nitrogen 10 mg/dL (6-20); Carbon Dioxide 25 mmol/L (22-29); Chloride 104 mmol/L (98-107); Creatinine Clr Calc Pharmacy 126.9455; Globulin 2.3 g/dL (1.3-4.6); Glomerular Filtration Rate 134.7 mL/min (90-130); Glucose 126 mg/dL (65-115); Osmolality Calculated 291 mOsm/kg (285-295); Potassium 3.4 mmol/L (3.5-5.1); Sodium 140 mmol/L (136-145); Total Bilirubin 0.4 mg/dL (0.15-1.2); Total Protein 6.3 g/dL (6.6-8.7)
[2024-07-01 14:09] LABS: HCG, Serum Qual Negative (Negative)
--- NOTE | 2024-07-01 14:47 | P.ANESUD_ITS ---
Pre-Anesthetic Update Pre-Anesthetic Assessment: Date of Surgery/Procedure: 07/01/24 Preop Ana gnosis: breast cancer Proposed Procedure: Operation Date: 07/01/24 14:15 Proposed Procedures p Total Vaginal Hysterectomy 77288, C50.812(Not Applicable) - Neymar Mcallister MD s Salpingo-Oophorectomy (Vaginal)(Bilateral) - Neymar Mcallister MD Any changes to Pre-Anesthetic Assessment?: No Changes from Pre- Anesthetic Assessment: No changes since she was seen last week. Still undergoing chemotherapy. Patient mildly nauseous this morning. Will give preop Pepcid. Plan for GETA Last Intake: Intake Last Liquid Date 07/01/24 Last Liquid Time 08:00 Last Solid Date 06/30/24 Last Solid Time 21:00 Labs Last 48hrs: Short CBC 07/01/24 Range/Units 13:25 WBC 4.02 (3.29-11.43) 10^ 3/uL Hgb 12.00 (11.27-16.99) g/ dL Hct 34.1 L (36-47) % MCV 87.4 (85-98) fl Plt Count 152 L (157-399) 10^3/c mm Neut % (Auto) 50.5 % Neut # (Auto) 2.03 (1.8-7.7) 10^3/u L BMP 07/01/24 13:25 Sodium 140 Potassium 3.4 L Chloride 104 Carbon Dioxide 25 BUN 10 Creatinine 0.5 Glucose 126 H Calcium 9.0 Liver Function 07/01/24 Range/Units 13:25 Total Bilirubin 0.4 (0.15-1.2) mg/dL AST 14 (0-32) U/L ALT 10 (0-33) U/L Alkaline Phosphata se 41 (35-105) U/L Albumin 4.0 (3.5-5.2) g/dL Vitals: Temperature 97.0 F L 07/01/24 12:56 Temperature Source Temporal Artery S can 07/01/24 12:56 Pulse Rate 89 07/01/24 12:56 Respiratory Rate 16 07/01/24 12:56 Blood Pressure 124/75 07/01/24 12:56 Blood Pressure Cyndy n 91 07/01/24 12:56 Pulse Oximetry 100 07/01/24 12:56 Oxygen Delivery Me thod Room Air 07/01/24 12:56 Cardiac Studies: Echocardiogram 01/17/24 Echocardiogram Limited Views 05/26/24
[2024-07-01] MEDS: ceFAZolin 2,000 mg SDV 2000 MG IVP (14:59)
[2024-07-01] MEDS: lidocaine-epi 2% PF 1:200,000 20 mL SDV INJECTION (15:58)
--- NOTE | 2024-07-01 16:22 | W.PM.BPON ---
Date of Procedure: 07/01/24 Surgeon: Neymar Mcallister MD Hospital Insurance Clerk(s): Procedure(s) performed: Total vaginal hysterectomy with bilateral salpingo-oophorectomy Findings of the procedure(s): Normal uterus tubes and ovaries Estimated blood loss: 75 mL Specimen(s) removed: Uterus left and right fallopian tube and ovaries Post-operative diagnosis: Status post total vaginal hysterectomy with bilateral salpingo-oophorectomy
--- NOTE | 2024-07-01 16:23 | PM.OP ---
Operative Report Date of procedure: July 01, 2024 Pre-op diagnosis: Invasive ductal carcinoma of left breast Post-op diagnosis: same Procedure done: Total vaginal hysterectomy with bilateral salpingo-oophorectomy Specimens removed/disposition: Uterus Left and right tube and ovary Surgeon: Neymar Mcallister MD Estimated blood loss (mL): 75 IV fluids (mL): 800 Urine output (mL): 100 Procedure: After informed consent and risks, benefits, indications and alternatives reviewed with the patient was taken to the operating room. The patient was placed in dorsal lithotomy position prepped, and draped in the usual sterile fashion. The pre-procedure timeout verifying the correct patient, procedure, site and side, could not requirements was performed and acknowledge by the OR team. A Sierra catheter was placed. A Bookwalter vaginal retractor was placed into the vagina in usual manner visualize the cervix. Cervix was grasped with a single tooth tenaculum and circumferentially infiltrated with 2% lidocaine with epinephrine. Then cervix was circumferentially incised with bovie and the bladder was dissected off the pubovesical cervical fascia anteriorly with a sponge stick and Metzenbaum scissors. The anterior peritoneal reflection was identified and the anterior cul-de-sac was entered sharply with Metzenbaum scissors. The same procedure was performed posteriorly and a posterior colpotomy was made through the posterior cul-de-sac space without difficulty and the posterior blade of the Bookwalter vaginal retractor was advanced posteriorly into the cul-de-sac. At this time, the left and right uterosacral ligaments were isolated and ligated with 0 Vicryl. The LigaSure device was placed over the uterosacral ligaments on either side and was then used in a serial fashion up through the cardinal ligaments bilaterally cross-clamped, cut, and sealed with the LigaSure device. Finally, the uterine arteries were cross-clamped, cut, sealed and ligated with the LigaSure device. Hemostasis was assured. The broad ligaments were then serially clamped, sealed and cut with the LigaSure device on both sides. Excellent hemostasis was visualized. Both cornua were clamped, sealed and cut with the LigaSure device. Then the pedicles were then suture ligated with excellent hemostasis. The uterus was excised and submitted for pathologic evaluation. No other abnormalities were noted in the pelvic cavity. Then the right side Infundibular ligament was identified. The ureter was confirmed along the pelvic side wall and peristalsis was noted. The LigaSure device was then used to clamp, sealed and transcepted at middistance, again being sure to be clear of the ureter and the fallopian tube and ovary were removed. The same process was then repeated on the left side. Good hemostasis was assure on both sides. The peritoneum was then closed in a pursestring fashion with 0 Vicryl suture. Bludigo was given IV. The vaginal cuff angles were closed with [id number] #0 Vicryl suture on both sides and transfixed with the ipsilateral cardinal and uterosacral ligaments. The remainder of the vaginal cuff was closed with #0 Vicryl in a running locked fashion. At this time, instruments were removed from the vagina at hemostasis assured. Sierra catheter was noted yielding clear blue urine. A vaginal packing with Premarin cream was placed and the patient was taken out of dorsal lithotomy position and awakened from the general anesthesia. The patient tolerated the procedure well and was taken to the PACU recovery room in a stable condition. Sponge, lap, needle and instruments counts were correct x3.
[2024-07-01] MEDS: fentaNYL 50 mcg/mL INJ 2mL IVP (16:45)
--- NOTE | 2024-07-01 17:25 | ANE.PACU2 ---
Inpatient post-anesthesia follow up: Airway intact: Yes Vital signs: Temperature 98.1 F Pulse Rate 65 Respiratory Rate 15 Blood Pressure 93/50 Pulse Oximetry 98 Oxygen Delivery Me thod Room Air Oxygen Flow Rate Fraction of Inspir ed Oxygen Hydration adequate: Yes Nausea and vomiting: No Pain level: 1 Mental status: Baseline
[2024-07-01] MEDS: dextrose 5%-lactated ringers 1,000 ML 125 ML IV (17:56)
[2024-07-01] MEDS: ketorolac 30 mg/mL INJ IVP (17:56)
[2024-07-01] MEDS: docusate sodium 100 mg Capsule PO (17:57)
[2024-07-01] MEDS: HYDROcodone-acetaminophen 5-325 mg Tablet PO (18:33)
[2024-07-02] MEDS: ketorolac 30 mg/mL INJ IVP (00:48)
[2024-07-02 01:00] VITALS: BP 104/62; PULSE 69; TEMP 37
[2024-07-02] MEDS: dextrose 5%-lactated ringers 1,000 ML 125 ML IV (02:16)
[2024-07-02] MEDS: HYDROcodone-acetaminophen 5-325 mg Tablet PO ×2 (03:15→08:52)
[2024-07-02 05:00] VITALS: BP 106/68; PULSE 73; TEMP 36.8
[2024-07-02 07:58] LABS: Hematocrit 29.7 % (36-47); Mean Corpuscular HGB Conc 33.7 g/dL (30-55); Mean Corpuscular Hemoglobin 30.7 pg (27-33); Mean Corpuscular Volume 91.1 fl (85-98); Mean Platelet Volume 9.3 fL (7.4-10.4); Platelet Count 126 10^3/cmm (157-399); Red Blood Count 3.26 10^6/uL (3.85-5.65); Red Cell Distribution Width 11.9 % (12.1-15.1); White Blood Count 5.79 10^3/uL (3.29-11.43)
[2024-07-02] MEDS: PRENATAL VIT NO.130/IRON/FOLIC 1 EACH TABLET PO (08:52)
[2024-07-02] MEDS: docusate sodium 100 mg Capsule PO (08:52)
[2024-07-02 09:32] VITALS: BP 90/56; PULSE 84; RESP 16; TEMP 36.7; O2SAT 98
--- NOTE | 2024-07-02 09:34 | PC.NURSE ---
Port was de-accessed at 0920 by Sandhya Reynolds RN on 07/02/24. Covered with 2x2 and tegaderm.
--- NOTE | 2024-07-02 10:27 | PM.OBGYDC ---
Discharge Providers DERMATOLOGY PROCEDURAL PHYSICIAN Date of Admission: 07/01/24 17:06 Date of Discharge: 07/02/24 Attending Provider at Admission: Neymar Mcallister MD Attending Provider at Discharge: Neymar Mcallister MD Primary Care Provider: Berry Hernandez DO Reason for Visit Reason for Visit: C50.812 Hospital Course Hospital Course Mrs. Garcia 43-year-old female G4, P4 with intraductal breast cancer positive for hormone receptor. Was admitted for recommended total vaginal hysterectomy with bilateral salpingo-oophorectomy. The procedures were performed without complication. Overnight observation was uneventful. She is afebrile and hemodynamically stable postoperative day 1. Tolerating diet well. Ambulating without difficulty. She was counseled regarding pelvic rest for 6 weeks (no sex, no tampons, no vaginal douches). Return to the emergency room if any fever, increased bleeding or pain. Physical Exam Narrative: GA: Alert and oriented ?3. HEENT: WNL. Heart: Regular rate and rhythm. Lungs: Clear to auscultation bilaterally. Abdomen: Bowel sounds present, nontender.. 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 Extremities: No edema, no cyanosis, no calves pain. Urinary Catheter Management: Sierra: Cath Placed During This Visit: yes, but has since been removed by the nurse Reason for Continuing Indwelling Catheter: Perioperative Use in Selected Surgeries Urinary Catheter Date of Insertion: 07/01/24 Urinary Catheter Time of Insertion: 15:31 Date Urinary Catheter Removed: 07/02/24 Time Urinary Catheter Discontinued: 05:00 History History History 4 Term 4 0 Miscarriages/Ectopic 0 Living Children 4 Discharge Data Studies Completed and Pending Pending at discharge Category Date Time Status Pathology: Surgical [PTH] Routine Pth 07/01/24 16:07 Received Laboratory Results WBC 5.79 10^3/uL (3.29-11.43) 07/02/24 06:15 RBC 3.26 10^6/uL (3.85-5.65) L 07/02/24 06:15 Hgb 10.00 g/dL (11.27-16.99) L 07/02/24 06:15 Hct 29.7 % (36-47) L 07/02/24 06:15 MCV 91.1 fl (85-98) 07/02/24 06:15 MCH 30.7 pg (27-33) 07/02/24 06:15 MCHC 33.7 g/dL (30-55) 07/02/24 06:15 RDW 11.9 % (12.1-15.1) L 07/02/24 06:15 Plt Count 126 10^3/cmm (157-399) L 07/02/24 06:15 MPV 9.3 fL (7.4-10.4) 07/02/24 06:15 Neut % (Auto) 50.5 % 07/01/24 13:25 Lymph % (Auto) 36.1 % 07/01/24 13:25 Bureau % (Auto) 8.7 % 07/01/24 13:25 Eos % (Auto) 3.7 % 07/01/24 13:25 Baso % (Auto) 0.5 % 07/01/24 13:25 Neut # (Auto) 2.03 10^3/uL (1.8-7.7) 07/01/24 13:25 Lymph # (Auto) 1.5 10^3/uL (0.8-4.8) 07/01/24 13:25 Bureau # (Auto) 0.4 10^3/uL (0.2-0.9) 07/01/24 13:25 Eos # (Auto) 0.2 10^3/uL (0.0-0.8) 07/01/24 13:25 Baso # (Auto) 0.0 10^3/uL (0.0-0.1) 07/01/24 13:25 Nucleated RBC % (auto) 0 % 07/01/24 13:25 Nucleated RBCs # 0.0 /100WBC 07/01/24 13:25 Sodium 140 mmol/L (136-145) 07/01/24 13:25 Potassium 3.4 mmol/L (3.5-5.1) L 07/01/24 13:25 Chloride 104 mmol/L (98-107) 07/01/24 13:25 Carbon Dioxide 25 mmol/L (22-29) 07/01/24 13:25 Anion Gap 14.4 (5-19) 07/01/24 13:25 BUN 10 mg/dL (6-20) 07/01/24 13:25 Creatinine 0.5 mg/dL (0.5-0.9) 07/01/24 13:25 GFR Calculation 134.7 mL/min (90-130) H 07/01/24 13:25 Glucose 126 mg/dL (65-115) H 07/01/24 13:25 Calculated Osmolality 291 mOsm/kg (285-295) 07/01/24 13:25 Calcium 9.0 mg/dL (8.5-10.5) 07/01/24 13:25 Total Bilirubin 0.4 mg/dL (0.15-1.2) 07/01/24 13:25 AST 14 U/L (0-32) 07/01/24 13:25 ALT 10 U/L (0-33) 07/01/24 13:25 Alkaline Phosphatase 41 U/L (35-105) 07/01/24 13:25 Total Protein 6.3 g/dL (6.6-8.7) L 07/01/24 13:25 Albumin 4.0 g/dL (3.5-5.2) 07/01/24 13:25 Globulin 2.3 g/dL (1.3-4.6) 07/01/24 13:25 HCG, Qual Negative (Negative) 07/01/24 13:25 Urine Color Yellow (Yellow) 06/23/24 09:43 Urine Appearance Clear (CLEAR) 06/23/24 09:43 Urine pH 7.0 (5-7) 06/23/24 09:43 Ur Specific [place] 1.012 (1.005-1.030) 06/23/24 09:43 Urine Protein Negative (Negative) 06/23/24 09:43 Urine Glucose (UA) Negative (Normal) 06/23/24 09:43 Urine Ketones Negative (Negative) 06/23/24 09:43 Urine Blood Negative (Negative) 06/23/24 09:43 Urine Nitrate Negative (Negative) 06/23/24 09:43 Urine Bilirubin Negative (Negative) 06/23/24 09:43 Urine Urobilinogen 1.0 mg/dL (Negative) 06/23/24 09:43 Ur Leukocyte Esterase Negative (Negative) 06/23/24 09:43 Urine RBC 0-2 /hpf (0-2) 06/23/24 09:43 Urine WBC 0-5 /hpf (0-5) 06/23/24 09:43 Ur Squamous Epith Cells 0-5 /hpf (0-5) 06/23/24 09:43 Amorphous Sediment Not Reportable 06/23/24 09:43 Urine Bacteria None seen /hpf (NONE) 06/23/24 09:43 Hyaline Casts 0-4 /lpf H 06/23/24 09:43 Urine HCG, Qual Negative (Negative) 06/23/24 09:43 Blood Type B Positive 07/01/24 13:25 Rho(D) Type Rh positive 07/01/24 13:25 Antibody Screen Negative 07/01/24 13:25 Vitals Last Vital Signs Temp 98.1 F 07/02/24 09:32 Pulse 84 07/02/24 09:32 Resp 16 07/02/24 09:32 BP 90/56 07/02/24 09:32 Pulse Ox 98 07/02/24 09:32 O2 Del Method Room Air 07/02/24 09:32 Results Labs OB ([facility]): Blood Type B Positive 07/01/24 Antibody Screen Negative 07/01/24 Hct 29.7 % (36-47) L 07/02/24 Hgb 10.00 g/dL (11.27-16.99) L 07/02/24 Rho(D) Type Rh positive 07/01/24 Plt Count 126 10^3/cmm (157-399) L 07/02/24 HCG, Qual Negative (Negative) 07/01/24 Pap Smear Interpret See note 05/17/23 Discharge Plan Discharge Patient Disposition: Home Condition: Stable Prescriptions: New hydrocodone-acetaminophen 5-325 mg tablet 1 tab PO Q4H PRN (Reason: pain) Qty: 20 0RF ferrous sulfate [Iron (ferrous sulfate)] 325 mg (65 mg iron) tablet 325 mg PO BID Qty: 60 0RF acetaminophen 325 mg capsule 325 mg PO Q4H PRN (Reason: fever or pain) Qty: 60 0RF ibuprofen 800 mg tablet 800 mg PO TID PRN (Reason: pain) Qty: 60 0RF Continued fluticasone propionate [Flonase Allergy Relief] 50 mcg/actuation spray,suspension 2 spray intranasal DAILY Rx Instructions: administer into each nostril lidocaine-prilocaine 2.5-2.5 % cream 1 applic topical .COMPLEX Qty: 30 2RF Rx Instructions: Apply quarter-size amount to port site 30 minutes prior to access; cover with cling wrap tamoxifen 20 mg tablet 20 mg PO DAILY Qty: 30 3RF Perjeta 420 mg/14 mL (30 mg/mL) solution 420 mg IV Q21D Rx Instructions: administer over 30-60 mins levocetirizine [Xyzal] 5 mg tablet 5 mg PO DAILY PRN (Reason: allergy symptoms) Qty: 60 0RF diphenoxylate-atropine [Lomotil] 2.5-0.025 mg tablet 2 tab PO QID PRN (Reason: diarrhea) Qty: 240 1RF 1 mg Tablet 1 tab PO DAILY Discharge Orders: Discharge Order (Routine); Ordered 07/02/24 Ordered By: Neymar Mcallister Referrals: Radha Mcmahon APN, KRISTEN [Nurse Practitioner] - 07/16/24 1:00 pm (6 week post op: 08/15/24 @ 3:15) Discharge Diet: Usual diet Discharge Activity: Limit activity as instructed Patient Instructions: Acute Wound Care (DC), Opioid Safety (DC), Vaginal Hysterectomy (DC), OB Discharge Report, OB Food/Drug Interaction Guide, Opioid Safety, Post Anesthesia Care Activity Restrictions/Additional Instructions: 1. Please call [facility] on next working day to make your post-operative appointment in 2 weeks. 2. Please stay home until you come back to the clinic on first post-hospatilization check up. 3. Please follow instructions on your medications CAREFULLY. 4. If you have abdominal incision, do not cover it unless dressing is necessary because of drainage. OK to shower, but avoid bath. Leave steri-strips until they fall off. If they are still on one week after surgery, you may remove them. 5. If you had vaginal surgery or vaginal repair, Dr. Mcallister may instruct you to take SITZ bath. 6. Yellow, blood tinged odorous vaginal discharge is usually normal after hysterectomy or vaginal surgeries. 7. No SEXUAL INTERCOURSE, tampons, or douches until you are completely released from the post-operative care. 8. Avoid constipation by eating right and maybe using some Metamucil or Milk of Magnesia. 9. All prescription refills are given during the working hours. Please do no wait till it runs out. Call the clinic at [phone] before your medication runs out. The clinic will get in touch with your doctor to prescribe medications if necessary. 10. Please remain within 40 mile radius from our hospital because emergencies do happen now and then during the post-operative period. 11. If you have stairs at home, take one step at a time slowly and minimize the number of trips. It helps to stay in one floor for the next few days. No lifting except what you can lift by one hand until you are released from the post-operative care. 12. Driving is discouraged until you are well healed. It may be 3-4 weeks before you feel strong enough to drive. You should be able to turn and look through the rear window without pain and you should be able to push the brake pedal very hard without pain before you drive. No fast rules, but SAFETY should be your primary concern. DO NOT drive if you are on sedating medications such as narcotics. 13. Call the clinic (during working hours) to make urgent appointment or go to the Emergency room, if any of the following occurs: i. Vaginal bleeding becomes heavy, more than a period. ii. Incision becomes red and sore, or drains pus. iii. Your TEMPERATURE is over 100.4F or you have chill. iv. IV site becomes red and swollen (a little ``knot?? is usually OK) v. Persistent nausea and vomiting vi. Persistent constipation or diarrhea vii. Rash or allergic reaction to medications. Discharge Attestations DERMATOLOGY PROCEDURAL PHYSICIAN Time Spent in Discharge Care*: greater than 30 min Coding Level of Care Code Acute Code for Chg Fwd
[2024-07-02 12:15] VITALS: BP 93/50; PULSE 65; RESP 15; O2SAT 98
== END 2024-07-02 12:15 | disposition home or self-care (01) ==
LOC: OBGYN 17:07
PROVIDERS: Admitting Provider Obstetrics & Gynecology; PCP Family Medicine; Visit Provider Obstetrics & Gynecology
PROC: (CPT 58260; principal; 2024-07-01 13:55)
PROC: (CPT 58720; 2024-07-01 13:55)
DX: C50.912 Malignant neoplasm of unspecified site of left female breast (principal); E03.9 Hypothyroidism, unspecified
CPT/HCPCS: 58260; 36415; 80053; 81001; 81025; 84703; 85025; 85027; 86850; 86900; 88307; 96374; 96376; G0378; J0690; J1100; J1650; J1885; J2250; J2405; J2704; J3010; J3490; J7030; J7040; J7121

== ENCOUNTER 2024-07-10 09:42 | Oncology outpatient (recurring) (ONCR) | payer OTHER, SELFPAY ==
[2024-07-10 10:10] LABS: Basophils % 0.6 %; Eosinophils # 0.2 10^3/uL (0.0-0.8); Eosinophils % 4.6 %; Hematocrit 33.6 % (36-47); Lymphocytes # 1.1 10^3/uL (0.8-4.8); Lymphocytes % 21.7 %; Mean Corpuscular HGB Conc 33.9 g/dL (30-55); Mean Corpuscular Hemoglobin 30.1 pg (27-33); Mean Corpuscular Volume 88.7 fl (85-98); Mean Platelet Volume 9.1 fL (7.4-10.4); Monocytes # 0.5 10^3/uL (0.2-0.9); Neutrophils # 3.16 10^3/uL (1.8-7.7); Neutrophils % 62.9 %; Nucleated Red Blood Cells % 0 %; Platelet Count 147 10^3/cmm (157-399); Red Blood Count 3.79 10^6/uL (3.85-5.65); Red Cell Distribution Width 11.9 % (12.1-15.1); White Blood Count 5.02 10^3/uL (3.29-11.43)
[2024-07-10 10:32] LABS: Alanine Aminotransferase 20 U/L (0-33); Alkaline Phosphatase 41 U/L (35-105); Aspartate Amino Transferase 19 U/L (0-32); Blood Urea Nitrogen 13 mg/dL (6-20); Calcium 9.1 mg/dL (8.5-10.5); Carbon Dioxide 26 mmol/L (22-29); Chloride 103 mmol/L (98-107); Creatinine Clr Calc Pharmacy 128.1923; Globulin 2.2 g/dL (1.3-4.6); Glomerular Filtration Rate 134.7 mL/min (90-130); Glucose 88 mg/dL (65-115); Osmolality Calculated 288 mOsm/kg (285-295); Sodium 139 mmol/L (136-145); Total Bilirubin 0.2 mg/dL (0.15-1.2); Total Protein 6.2 g/dL (6.6-8.7)
[2024-07-10] MEDS: diphenhydrAMINE 25 mg Capsule PO (12:24)
[2024-07-10] MEDS: acetaminophen 325 mg Tablet 650 MG PO (12:24)
[2024-07-10] MEDS: sodium chloride 0.9% 250 ML 25 ML IV (12:25)
[2024-07-10] MEDS: pertuzumab 420 MG in sodium chloride 0.9% 250 ML 264 MG IV (12:55)
[2024-07-10 14:07] VITALS: BP 100/62; PULSE 87; TEMP 36.2; O2SAT 98
== END 2024-07-29 23:59 | disposition home or self-care (01) ==
PROVIDERS: Nurse Practitioner Family; PCP Family Medicine; Visit Provider Radiology Radiation Oncology
DX: C50.812 Malignant neoplasm of overlapping sites of left female breast; Z51.12 Encounter for antineoplastic immunotherapy; Z79.899 Other long term (current) drug therapy
CPT/HCPCS: 80053; 85025; 96413; J7050; J9306

== ENCOUNTER → 2024-07-16 15:08 | Outpatient (BNVA) | payer OTHER, SELFPAY | PROVIDERS: PCP Family Medicine; Visit Provider Nurse Practitioner Women's Health | DX: R35.0 Frequency of micturition (principal); Z48.816 Encounter for surgical aftercare following surgery on the genitourinary system; E89.41 Symptomatic postprocedural ovarian failure; N95.8 Other specified menopausal and perimenopausal disorders | CPT/HCPCS: 81000; 87086 ==

== ENCOUNTER 2024-08-21 11:00 | Oncology outpatient (recurring) (ONCR) | payer OTHER, SELFPAY ==
[2024-07-31 11:36] LABS: Basophils % 0.5 %; Eosinophils # 0.1 10^3/uL (0.0-0.8); Eosinophils % 3.4 %; Hematocrit 34.8 % (36-47); Lymphocytes # 1.1 10^3/uL (0.8-4.8); Lymphocytes % 27.1 %; Mean Corpuscular HGB Conc 33.9 g/dL (30-55); Mean Corpuscular Hemoglobin 30.4 pg (27-33); Mean Corpuscular Volume 89.7 fl (85-98); Mean Platelet Volume 8.9 fL (7.4-10.4); Monocytes # 0.4 10^3/uL (0.2-0.9); Monocytes % 8.5 %; Neutrophils % 60.3 %; Nucleated Red Blood Cells % 0 %; Platelet Count 155 10^3/cmm (157-399); Red Blood Count 3.88 10^6/uL (3.85-5.65); Red Cell Distribution Width 12.4 % (12.1-15.1); White Blood Count 4.14 10^3/uL (3.29-11.43)
[2024-07-31 11:52] LABS: Alanine Aminotransferase 10 U/L (0-33); Alkaline Phosphatase 45 U/L (35-105); Aspartate Amino Transferase 16 U/L (0-32); Blood Urea Nitrogen 12 mg/dL (6-20); Calcium 9.1 mg/dL (8.5-10.5); Carbon Dioxide 26 mmol/L (22-29); Chloride 104 mmol/L (98-107); Globulin 2.2 g/dL (1.3-4.6); Glomerular Filtration Rate 174.2 mL/min (90-130); Glucose 91 mg/dL (65-115); Osmolality Calculated 289 mOsm/kg (285-295); Sodium 140 mmol/L (136-145); Total Bilirubin 0.3 mg/dL (0.15-1.2); Total Protein 6.2 g/dL (6.6-8.7)
[2024-07-31] MEDS: sodium chloride 0.9% 250 ML 50 ML IV (14:16)
[2024-07-31] MEDS: acetaminophen 325 mg Tablet 650 MG PO (14:17)
[2024-07-31] MEDS: pertuzumab 420 MG in sodium chloride 0.9% 250 ML 264 MG IV (14:45)
[2024-07-31 15:37] VITALS: BP 105/69; PULSE 76; RESP 16; TEMP 36.4; O2SAT 98
--- NOTE | 2024-07-31 16:02 | PC.NURSE ---
Patient request to hold benadryl today due to sleepiness. Explained that we can give as needed.
[2024-08-07 11:35] LABS: Factor 5 Leiden Mutation NEGATIVE
[2024-08-21 11:47] LABS: Basophils % 0.8 %; Eosinophils # 0.1 10^3/uL (0.0-0.8); Eosinophils % 2.6 %; Hematocrit 35.3 % (36-47); Lymphocytes # 1.1 10^3/uL (0.8-4.8); Lymphocytes % 29.9 %; Mean Corpuscular Hemoglobin 30.2 pg (27-33); Mean Corpuscular Volume 88.7 fl (85-98); Mean Platelet Volume 9.2 fL (7.4-10.4); Monocytes # 0.4 10^3/uL (0.2-0.9); Monocytes % 9.4 %; Neutrophils # 2.18 10^3/uL (1.8-7.7); Neutrophils % 57.3 %; Nucleated Red Blood Cells % 0 %; Platelet Count 148 10^3/cmm (157-399); Red Blood Count 3.98 10^6/uL (3.85-5.65); White Blood Count 3.81 10^3/uL (3.29-11.43)
[2024-08-21 12:10] LABS: Alanine Aminotransferase 13 U/L (0-33); Albumin Level 4.1 g/dL (3.5-5.2); Alkaline Phosphatase 46 U/L (35-105); Anion Gap 14.7 (5-19); Aspartate Amino Transferase 16 U/L (0-32); Blood Urea Nitrogen 10 mg/dL (6-20); Carbon Dioxide 26 mmol/L (22-29); Chloride 103 mmol/L (98-107); Creatinine Clr Calc Pharmacy 129.0233; Globulin 2.1 g/dL (1.3-4.6); Glomerular Filtration Rate 134.7 mL/min (90-130); Glucose 95 mg/dL (65-115); Osmolality Calculated 289 mOsm/kg (285-295); Potassium 3.7 mmol/L (3.5-5.1); Sodium 140 mmol/L (136-145); Total Bilirubin 0.3 mg/dL (0.15-1.2); Total Protein 6.2 g/dL (6.6-8.7)
[2024-08-21] MEDS: sodium chloride 0.9% 250 ML 75 ML IV (13:46)
[2024-08-21] MEDS: acetaminophen 325 mg Tablet 650 MG PO (13:47)
[2024-08-21] MEDS: pertuzumab 420 MG in sodium chloride 0.9% 250 ML 264 MG IV (14:18)
[2024-08-21 15:26] VITALS: BP 112/74; PULSE 84; RESP 16; TEMP 36.5; O2SAT 96
== END 2024-08-21 23:59 | disposition home or self-care (01) ==
PROVIDERS: Nurse Practitioner; PCP Family Medicine; Visit Provider Internal Medicine
DX: Z51.12 Encounter for antineoplastic immunotherapy; C50.812 Malignant neoplasm of overlapping sites of left female breast; Z79.899 Other long term (current) drug therapy; Z53.9 Procedure and treatment not carried out, unspecified reason
CPT/HCPCS: 36415; 80053; 81241; 85025; 96413; J7050; J9306

== ENCOUNTER 2024-09-11 10:48 | Oncology outpatient (recurring) (ONCR) | payer OTHER, SELFPAY ==
[2024-09-11 11:39] LABS: Basophils % 0.5 %; Eosinophils # 0.1 10^3/uL (0.0-0.8); Eosinophils % 1.9 %; Hematocrit 36.3 % (36-47); Lymphocytes # 1.3 10^3/uL (0.8-4.8); Lymphocytes % 31.1 %; Mean Corpuscular HGB Conc 34.4 g/dL (30-55); Mean Corpuscular Hemoglobin 30.2 pg (27-33); Mean Corpuscular Volume 87.7 fl (85-98); Monocytes # 0.4 10^3/uL (0.2-0.9); Monocytes % 8.9 %; Neutrophils % 57.4 %; Nucleated Red Blood Cells % 0 %; Platelet Count 153 10^3/cmm (157-399); Red Blood Count 4.14 10^6/uL (3.85-5.65); Red Cell Distribution Width 11.5 % (12.1-15.1); White Blood Count 4.18 10^3/uL (3.29-11.43)
[2024-09-11 11:49] LABS: Alanine Aminotransferase 10 U/L (0-33); Alkaline Phosphatase 46 U/L (35-105); Anion Gap 15.6 (5-19); Aspartate Amino Transferase 15 U/L (0-32); Blood Urea Nitrogen 11 mg/dL (6-20); Calcium 9.1 mg/dL (8.5-10.5); Carbon Dioxide 26 mmol/L (22-29); Chloride 101 mmol/L (98-107); Creatinine Clr Calc Pharmacy 129.4392; Globulin 2.6 g/dL (1.3-4.6); Glomerular Filtration Rate 134.7 mL/min (90-130); Glucose 93 mg/dL (65-115); Osmolality Calculated 287 mOsm/kg (285-295); Potassium 3.6 mmol/L (3.5-5.1); Sodium 139 mmol/L (136-145); Total Bilirubin 0.3 mg/dL (0.15-1.2); Total Protein 6.6 g/dL (6.6-8.7)
[2024-09-11] MEDS: acetaminophen 325 mg Tablet 650 MG PO (13:00)
[2024-09-11] MEDS: sodium chloride 0.9% 250 ML 50 ML IV (13:25)
[2024-09-11] MEDS: pertuzumab 420 MG in sodium chloride 0.9% 250 ML 264 MG IV (14:12)
[2024-09-11 16:04] VITALS: BP 100/67; PULSE 77; RESP 18; TEMP 37; O2SAT 97
== END 2024-09-26 23:59 | disposition home or self-care (01) ==
PROVIDERS: PCP Family Medicine; Visit Provider Internal Medicine
DX: Z51.12 Encounter for antineoplastic immunotherapy (principal); C50.812 Malignant neoplasm of overlapping sites of left female breast; Z79.899 Other long term (current) drug therapy; M85.80 Other specified disorders of bone density and structure, unspecified site
CPT/HCPCS: 80053; 85025; 96413; J7050; J9306

== ENCOUNTER 2024-09-26 08:28 | Outpatient (CLI) | payer OTHER, SELFPAY ==
--- NOTE | 2024-09-26 08:30 | XR_ITS ---
WS: [id number] Left shoulder, 2 views, 09/26/2024 Clinical Data: left shoulder pain Comparison: None. Findings: No fractures or dislocations are seen. The AC joint is normal. The adjacent left clavicle, left scapula and ribs are normal. The soft tissues are unremarkable. There are surgical clips in the left axilla. An infusion port enters the superior vena cava. XR/XR shoulder LT min 2V* [id number] Impression: Negative left shoulder.
== END 2024-09-26 08:29 | disposition home or self-care (01) ==
LOC: RAD 08:29
PROVIDERS: PCP Family Medicine; Visit Provider Nurse Practitioner
DX: C50.812 Malignant neoplasm of overlapping sites of left female breast (principal); M85.80 Other specified disorders of bone density and structure, unspecified site; Z96.89 Presence of other specified functional implants
CPT/HCPCS: 73030

== ENCOUNTER 2024-10-23 11:00 | Oncology outpatient (recurring) (ONCR) | payer OTHER, SELFPAY ==
[2024-10-02 13:05] LABS: Basophils % 0.6 %; Eosinophils # 0.1 10^3/uL (0.0-0.8); Eosinophils % 1.5 %; Hematocrit 35.2 % (36-47); Lymphocytes # 1.3 10^3/uL (0.8-4.8); Lymphocytes % 27.1 %; Mean Corpuscular HGB Conc 34.9 g/dL (30-55); Mean Corpuscular Volume 88.7 fl (85-98); Mean Platelet Volume 8.8 fL (7.4-10.4); Monocytes # 0.4 10^3/uL (0.2-0.9); Monocytes % 7.6 %; Neutrophils # 2.97 10^3/uL (1.8-7.7); Nucleated Red Blood Cells % 0 %; Platelet Count 174 10^3/cmm (157-399); Red Blood Count 3.97 10^6/uL (3.85-5.65); Red Cell Distribution Width 11.5 % (12.1-15.1); White Blood Count 4.72 10^3/uL (3.29-11.43)
[2024-10-02 13:23] LABS: Alanine Aminotransferase 8 U/L (0-33); Albumin Level 4.1 g/dL (3.5-5.2); Alkaline Phosphatase 48 U/L (35-105); Anion Gap 10.8 (5-19); Aspartate Amino Transferase 15 U/L (0-32); Blood Urea Nitrogen 12 mg/dL (6-20); Calcium 8.9 mg/dL (8.5-10.5); Carbon Dioxide 28 mmol/L (22-29); Chloride 106 mmol/L (98-107); Globulin 2.3 g/dL (1.3-4.6); Glomerular Filtration Rate 134.7 mL/min (90-130); Glucose 115 mg/dL (65-115); Osmolality Calculated 293 mOsm/kg (285-295); Potassium 3.8 mmol/L (3.5-5.1); Sodium 141 mmol/L (136-145); Total Bilirubin 0.2 mg/dL (0.15-1.2); Total Protein 6.4 g/dL (6.6-8.7)
[2024-10-02] MEDS: acetaminophen 325 mg Tablet 650 MG PO (16:12)
--- NOTE | 2024-10-02 16:13 | PC.NURSE ---
benadryl was refused by patient due to fatigue
[2024-10-02] MEDS: pertuzumab 420 MG in sodium chloride 0.9% 250 ML 264 MG IV (16:40)
--- NOTE | 2024-10-10 06:30 | USCV_ITS ---
Penny Garcia Age: 43 Gender: F : 1980 Exam Date: 10/10/2024 06:51 Ordering Phys: Keira Barboza NP Technologist: Mark Keller Exam Location: [facility] [place] Indication: high risk meds BP: 104 / 64 HR: Rhythm: Sinus Technical Quality: Adequate MEASUREMENTS (Male / Female) Normal Values 2D ECHO LV Diastolic Diameter PLAX 4.3 cm 4.2 - 5.9 / 3.9 - 5.3 cm IVS Diastolic Thickness 0.8 cm 0.6 - 1.0 / 0.6 - 0.9 cm IVS Systolic Thickness 0.9 cm LVPW Diastolic Thickness 1.0 cm 0.6 - 1.0 / 0.6 - 0.9 cm LVPW Systolic Thickness 1.6 cm LVOT Diameter 2.0 cm LV Ejection Fraction 2D Teich 65.6 % LV Ejection Fraction MOD 4C 62.2 % LV Ejection Fraction MOD 2C 60.9 % LV Ejection Fraction 2C AL 61.7 % LA Diameter 3.0 cm RA Systolic Volume 4C AL 22.8 ml RA Systolic Volume 4C MOD 23.9 ml LA Sys Volume AL 15.9 cm cubed LA Sys Volume Index AL 10.5 cm cubed/m squared Aorta at Sinotubular Diameter 2.0 cm IVC Diameter 2.6 cm M-MODE LA Ao Ratio MM 1.2 AV Cusp Separation MM 1.7 cm FINDINGS Left Ventricle Normal left ventricular size, systolic function and wall thickness, with no regional wall motion abnormalities. Left ventricular ejection fraction is estimated at 55 %. Right Ventricle Right Atrium Left Atrium Mitral Valve Aortic Valve Tricuspid Valve Pulmonic Valve Pericardium Aorta IVC CONCLUSIONS Limited eho to assess Ejection fration Normal left ventricular size, systolic function and wall thickness, with no regional wall motion abnormalities. Left ventricular ejection fraction is estimated at 55 %. Right atrial pressure is around 10 mm of mercury. There is no pericardial effusion. Shaylee Ruiz MD (Electronically Signed) Final Date: 17 October 2024 10:54 S
[2024-10-23 11:21] LABS: Basophils % 0.7 %; Eosinophils # 0.1 10^3/uL (0.0-0.8); Eosinophils % 2.1 %; Lymphocytes % 23.9 %; Mean Corpuscular HGB Conc 33.7 g/dL (30-55); Mean Corpuscular Hemoglobin 29.8 pg (27-33); Mean Corpuscular Volume 88.4 fl (85-98); Mean Platelet Volume 9.2 fL (7.4-10.4); Monocytes # 0.5 10^3/uL (0.2-0.9); Monocytes % 10.9 %; Neutrophils # 2.68 10^3/uL (1.8-7.7); Neutrophils % 62.2 %; Nucleated Red Blood Cells % 0 %; Platelet Count 149 10^3/cmm (157-399); Red Blood Count 3.96 10^6/uL (3.85-5.65); White Blood Count 4.31 10^3/uL (3.29-11.43)
[2024-10-23 11:37] LABS: Alanine Aminotransferase 10 U/L (0-33); Alkaline Phosphatase 43 U/L (35-105); Anion Gap 11.9 (5-19); Aspartate Amino Transferase 14 U/L (0-32); Blood Urea Nitrogen 11 mg/dL (6-20); Calcium 8.7 mg/dL (8.5-10.5); Carbon Dioxide 27 mmol/L (22-29); Chloride 105 mmol/L (98-107); Globulin 2.5 g/dL (1.3-4.6); Glomerular Filtration Rate 134.7 mL/min (90-130); Glucose 84 mg/dL (65-115); Osmolality Calculated 289 mOsm/kg (285-295); Potassium 3.9 mmol/L (3.5-5.1); Sodium 140 mmol/L (136-145); Total Bilirubin 0.2 mg/dL (0.15-1.2); Total Protein 6.5 g/dL (6.6-8.7)
[2024-10-23] MEDS: acetaminophen 325 mg Tablet 650 MG PO (13:50)
[2024-10-23 14:04] LABS: 25 Hydroxy Vitamin D 33 ng/mL (30-100); Thyroid Stimulating Hormone 3.83 uIU/mL (0.27-4.20)
[2024-10-23] MEDS: sodium chloride 0.9% 250 ML 75 ML IV (14:26)
[2024-10-23] MEDS: pertuzumab 420 MG in sodium chloride 0.9% 250 ML 264 MG IV (14:27)
[2024-10-23 15:45] VITALS: BP 113/76; PULSE 99; TEMP 37.1
== END 2024-10-23 23:59 | disposition home or self-care (01) ==
PROVIDERS: Internal Medicine; Nurse Practitioner Family; PCP Family Medicine; Visit Provider Nurse Practitioner
DX: Z53.9 Procedure and treatment not carried out, unspecified reason (principal); Z51.12 Encounter for antineoplastic immunotherapy; C50.812 Malignant neoplasm of overlapping sites of left female breast; Z79.899 Other long term (current) drug therapy
CPT/HCPCS: 36591; 80053; 82306; 84443; 85025; 93308; 96413; J7050; J9306; J9999

== ENCOUNTER 2024-11-12 07:40 | Outpatient (RCR) | payer OTHER, SELFPAY | END 2024-11-26 23:59 | disposition home or self-care (01) | LOC: SPT 07:40 | PROVIDERS: PCP Family Medicine; Visit Provider Nurse Practitioner Family | DX: I97.2 Postmastectomy lymphedema syndrome (principal) | CPT/HCPCS: 97140; 97161 ==

== ENCOUNTER 2024-11-13 11:00 | Oncology outpatient (recurring) (ONCR) | payer OTHER, SELFPAY ==
--- NOTE | 2024-11-11 06:15 | USCV_ITS ---
Penny Garcia Age: 43 Gender: F : 1980 Exam Date: 11/11/2024 06:19 Ordering Phys: Rona Narvaez APRN Technologist: [place] [facility] [place]: high risk meds ef BP: 110 / 70 HR: Rhythm: Sinus Technical Quality: Adequate MEASUREMENTS (Male / Female) Normal Values 2D ECHO LV Diastolic Diameter PLAX 4.2 cm 4.2 - 5.9 / 3.9 - 5.3 cm IVS Diastolic Thickness 1.0 cm 0.6 - 1.0 / 0.6 - 0.9 cm IVS Systolic Thickness 1.1 cm LVPW Diastolic Thickness 0.9 cm 0.6 - 1.0 / 0.6 - 0.9 cm LVPW Systolic Thickness 1.4 cm LVOT Diameter 1.9 cm LV Ejection Fraction 2D Teich 61.9 % LV Ejection Fraction MOD 4C 58.0 % LV Ejection Fraction MOD 2C 59.5 % LV Ejection Fraction 2C AL 58.2 % LA Diameter 2.4 cm RA Systolic Volume 4C AL 42.0 ml RA Systolic Volume 4C MOD 38.2 ml Aorta at Sinotubular Diameter 2.7 cm FINDINGS Left Ventricle Normal left ventricular size and systolic function, EF 60%. No regional wall motion abnormalities. Right Ventricle The right ventricle is normal in size and function. Right Atrium Normal right atrial size. Left Atrium Normal left atrial size. Mitral Valve No gross abnormalities noted Aortic Valve No gross abnormalities noted Tricuspid Valve No gross abnormalities noted Pulmonic Valve No gross abnormalities noted Pericardium Normal pericardium without effusion. Aorta Normal aortic annulus size. IVC Normal inferior vena cava. CONCLUSIONS Normal left ventricular size and systolic function, EF 60%. No regional wall motion abnormalities. Normal cardiac chamber sizes. No gross valvular abnormalities There is no pericardial effusion. There are no intracardiac masses. Compared to the study from 10/10/2024, there may not be a significant change Dr Apryl Morgan MD FACC (Electronically Signed) Final Date: 11 November 2024 09:53 S
[2024-11-13 11:03] LABS: Basophils % 0.5 %; Eosinophils # 0.1 10^3/uL (0.0-0.8); Eosinophils % 2.8 %; Hematocrit 34.4 % (36-47); Lymphocytes # 1.5 10^3/uL (0.8-4.8); Lymphocytes % 34.7 %; Mean Corpuscular HGB Conc 34.3 g/dL (30-55); Mean Corpuscular Hemoglobin 29.9 pg (27-33); Mean Corpuscular Volume 87.3 fl (85-98); Mean Platelet Volume 8.8 fL (7.4-10.4); Monocytes # 0.4 10^3/uL (0.2-0.9); Monocytes % 9.8 %; Neutrophils # 2.24 10^3/uL (1.8-7.7); Neutrophils % 52.2 %; Nucleated Red Blood Cells % 0 %; Platelet Count 138 10^3/cmm (157-399); Red Blood Count 3.94 10^6/uL (3.85-5.65); Red Cell Distribution Width 11.9 % (12.1-15.1); White Blood Count 4.29 10^3/uL (3.29-11.43)
[2024-11-13 11:19] LABS: Alanine Aminotransferase 14 U/L (0-33); Alkaline Phosphatase 46 U/L (35-105); Anion Gap 12.9 (5-19); Aspartate Amino Transferase 17 U/L (0-32); Blood Urea Nitrogen 13 mg/dL (6-20); Calcium 8.8 mg/dL (8.5-10.5); Carbon Dioxide 26 mmol/L (22-29); Chloride 105 mmol/L (98-107); Globulin 2.5 g/dL (1.3-4.6); Glomerular Filtration Rate 134.7 mL/min (90-130); Glucose 92 mg/dL (65-115); Osmolality Calculated 290 mOsm/kg (285-295); Potassium 3.9 mmol/L (3.5-5.1); Sodium 140 mmol/L (136-145); Total Bilirubin 0.2 mg/dL (0.15-1.2); Total Protein 6.5 g/dL (6.6-8.7)
--- NOTE | 2024-11-13 12:06 | PC.NURSE ---
pt refused benadryl
[2024-11-13] MEDS: acetaminophen 325 mg Tablet 650 MG PO (12:11)
[2024-11-13] MEDS: sodium chloride 0.9% 250 ML 75 ML IV (12:12)
[2024-11-13] MEDS: pertuzumab 420 MG in sodium chloride 0.9% 250 ML 264 MG IV (12:52)
[2024-11-13 13:36] VITALS: BP 122/80; PULSE 80; RESP 18; TEMP 36.6; O2SAT 97
== END 2024-11-26 23:59 | disposition home or self-care (01) ==
PROVIDERS: PCP Family Medicine; Visit Provider Nurse Practitioner Family
DX: Z53.9 Procedure and treatment not carried out, unspecified reason (principal); Z51.12 Encounter for antineoplastic immunotherapy; C50.812 Malignant neoplasm of overlapping sites of left female breast; Z79.899 Other long term (current) drug therapy
CPT/HCPCS: 80053; 85025; 93308; 96413; J7050; J9306; J9999

== ENCOUNTER 2024-11-27 05:00 | Outpatient (RCR) | payer OTHER, SELFPAY | END 2024-12-27 23:59 | disposition home or self-care (01) | LOC: SPT 05:00 | PROVIDERS: PCP Family Medicine; Visit Provider Nurse Practitioner Family | DX: I97.2 Postmastectomy lymphedema syndrome (principal) | CPT/HCPCS: 97140 ==

== ENCOUNTER 2024-12-04 13:22 | Oncology outpatient (recurring) (ONCR) | payer OTHER, SELFPAY ==
[2024-12-04 13:54] LABS: Basophils % 0.9 %; Eosinophils # 0.1 10^3/uL (0.0-0.8); Eosinophils % 2.1 %; Hematocrit 35.9 % (36-47); Lymphocytes # 1.4 10^3/uL (0.8-4.8); Lymphocytes % 32.2 %; Mean Corpuscular HGB Conc 34.3 g/dL (30-55); Mean Corpuscular Hemoglobin 29.9 pg (27-33); Mean Corpuscular Volume 87.1 fl (85-98); Mean Platelet Volume 8.7 fL (7.4-10.4); Monocytes # 0.4 10^3/uL (0.2-0.9); Monocytes % 8.4 %; Neutrophils # 2.41 10^3/uL (1.8-7.7); Neutrophils % 56.2 %; Nucleated Red Blood Cells % 0 %; Platelet Count 168 10^3/cmm (157-399); Red Blood Count 4.12 10^6/uL (3.85-5.65); Red Cell Distribution Width 12.3 % (12.1-15.1); White Blood Count 4.29 10^3/uL (3.29-11.43)
[2024-12-04 14:23] LABS: Alanine Aminotransferase 12 U/L (0-33); Alkaline Phosphatase 42 U/L (35-105); Anion Gap 13.8 (5-19); Aspartate Amino Transferase 18 U/L (0-32); Blood Urea Nitrogen 9 mg/dL (6-20); Calcium 9.2 mg/dL (8.5-10.5); Carbon Dioxide 27 mmol/L (22-29); Chloride 103 mmol/L (98-107); Free T4 Free Thyroxine 1.11 ng/dL (0.82-1.77); Globulin 2.6 g/dL (1.3-4.6); Glomerular Filtration Rate 109.1 mL/min (90-130); Glucose 93 mg/dL (65-115); Osmolality Calculated 288 mOsm/kg (285-295); Potassium 3.8 mmol/L (3.5-5.1); Sodium 140 mmol/L (136-145); Thyroid Stimulating Hormone 3.46 uIU/mL (0.27-4.20); Total Bilirubin 0.3 mg/dL (0.15-1.2); Total Protein 6.6 g/dL (6.6-8.7)
[2024-12-04 15:19] LABS: 25 Hydroxy Vitamin D 39 ng/mL (30-100)
== END 2024-12-27 23:59 | disposition home or self-care (01) ==
PROVIDERS: Internal Medicine Medical Oncology; PCP Family Medicine; Visit Provider Nurse Practitioner Family
DX: Z51.12 Encounter for antineoplastic immunotherapy (principal); C50.812 Malignant neoplasm of overlapping sites of left female breast; Z79.899 Other long term (current) drug therapy
CPT/HCPCS: 36591; 80053; 82306; 84439; 84443; 85025

== ENCOUNTER 2025-03-12 14:17 | Oncology outpatient (recurring) (ONCR) | payer OTHER, SELFPAY ==
[2025-03-12 14:42] LABS: Hematocrit 36.8 % (36-47); Hemoglobin 12.30 g/dL (11.27-16.99); Mean Corpuscular HGB Conc 33.4 g/dL (30-55); Mean Corpuscular Hemoglobin 29.6 pg (27-33); Mean Corpuscular Volume 88.5 fl (85-98); Nucleated Red Blood Cells % 0 %; Platelet Count 168 10^3/cmm (157-399); Red Blood Count 4.16 10^6/uL (3.85-5.65); White Blood Count 4.78 10^3/uL (3.29-11.43)
[2025-03-12 15:08] LABS: Alanine Aminotransferase 11 U/L (0-33); Albumin Level 4.0 g/dL (3.5-5.2); Alkaline Phosphatase 42 U/L (35-105); Anion Gap 13.0 (5-19); Aspartate Amino Transferase 17 U/L (0-32); Blood Urea Nitrogen 13 mg/dL (6-20); CA 15-3 12.4 U/mL (0-25); Calcium 9.0 mg/dL (8.5-10.5); Carbon Dioxide 30 mmol/L (22-29); Chloride 99 mmol/L (98-107); Creatinine Clr Calc Pharmacy 111.2095; Globulin 2.5 g/dL (1.3-4.6); Glucose 89 mg/dL (65-115); Osmolality Calculated 286 mOsm/kg (285-295); Potassium 4.0 mmol/L (3.5-5.1); Sodium 138 mmol/L (136-145); Total Protein 6.5 g/dL (6.6-8.7)
== END 2025-03-29 23:59 | disposition home or self-care (01) ==
PROVIDERS: Internal Medicine; PCP Family Medicine; Visit Provider Nurse Practitioner Family
DX: C50.812 Malignant neoplasm of overlapping sites of left female breast (principal)
CPT/HCPCS: 36415; 80053; 85025; 86300

== ENCOUNTER 2025-04-13 07:59 | Oncology outpatient (recurring) (ONCR) | payer OTHER, SELFPAY ==
--- NOTE | 2025-04-13 08:30 | USCV_ITS ---
Penny Garcia Age: 44 Gender: F : 1980 Exam Date: 04/13/2025 08:22 Ordering Phys: Rona Narvaez APRN Technologist: Exam [place] [facility] [place]ication: high risk meds BP: 106 / 70 HR: Rhythm: Sinus Technical Quality: Adequate MEASUREMENTS (Male / Female) Normal Values 2D ECHO LV Diastolic Diameter PLAX 3.9 cm 4.2 - 5.9 / 3.9 - 5.3 cm IVS Diastolic Thickness 0.9 cm 0.6 - 1.0 / 0.6 - 0.9 cm IVS Systolic Thickness 1.3 cm LVPW Diastolic Thickness 0.9 cm 0.6 - 1.0 / 0.6 - 0.9 cm LVPW Systolic Thickness 1.1 cm LVOT Diameter 2.0 cm LV Ejection Fraction 2D Teich 52.2 % LV Ejection Fraction MOD 4C 69.9 % LA Diameter 2.2 cm RA Systolic Volume 4C AL 25.3 ml RA Systolic Volume 4C MOD 24.8 ml LA Sys Volume AL 30.2 cm cubed LA Sys Volume Index AL 18.0 cm cubed/m squared Aorta at Sinotubular Diameter 2.8 cm IVC Diameter 2.0 cm M-MODE LA Ao Ratio MM 1.1 AV Cusp Separation MM 2.1 cm FINDINGS Left Ventricle Normal left ventricular size and systolic function, EF 69 %.no regional wall motion abnormalities. Technically difficult study because of poor ultrasonic Right Ventricle Normal right ventricular size and systolic function. Right Atrium The right atrium is normal in size. Left Atrium The left atrium is normal in size. Mitral Valve No gross abnormalities noted Aortic Valve Thickened aortic valve. Tricuspid Valve No gross abnormalities noted Pulmonic Valve No gross abnormalities noted Pericardium No pericardial effusion. Aorta Normal ascending aorta dimension. IVC The inferior vena cava appears normal. CONCLUSIONS Normal left ventricular size and systolic function, EF 69 %. No regional wall motion abnormalities. Possibly normal chamber sizes No significant valvular lesions There is no pericardial effusion. Technically difficult study because of the poor ultrasonic window. Dr Apryl Morgan MD FACC (Electronically Signed) Final Date: 16 April 2025 00:43 S
== END 2025-04-28 23:59 | disposition home or self-care (01) ==
LOC: ONCMED 08:03
PROVIDERS: PCP Family Medicine; Visit Provider Nurse Practitioner Family
DX: C50.812 Malignant neoplasm of overlapping sites of left female breast (principal); Z79.899 Other long term (current) drug therapy; I35.8 Other nonrheumatic aortic valve disorders
CPT/HCPCS: 93308

== ENCOUNTER 2025-05-04 08:01 | Oncology outpatient (recurring) (ONCR) | payer OTHER, SELFPAY ==
--- NOTE | 2025-05-04 08:15 | CT_ITS ---
WS: [id number] CT PARANASAL SINUSES HISTORY: chronic sinusitis TECHNIQUE: Contiguous 2.0 mm axial images obtained through the sinuses. Images are reconstructed in sagittal and coronal planes. All CT scans at [facility] use at least one of these dose optimization techniques: automated exposure control; mA and/or kV adjustment per patient size (includes targeted exams where dose is matched to clinical indication); or iterative reconstruction. DLP: 338.23 mGy.cm COMPARISON: None available. Frontal sinuses: Normal. Sphenoid sinus: Normal. Ethmoid sinuses: Normal. Maxillary sinus: Normal. No air-fluid levels. Ostiomeatal unit: Widely patent with no mucoperiosteal thickening. Very mild LEFT deviation and tiny bony spur of the nasal septum. No1 soft tissue masses or bone destruction. Visualized orbits and globes are normal. Upper cervical spine is negative. CT/CT sinus wo con* [id number] IMPRESSION: 1. Normal CT sinuses. 2. No air-fluid levels or mucoperiosteal thickening. 3. Patent ostiomeatal units.
== END 2025-05-29 23:59 | disposition home or self-care (01) ==
LOC: ONCMED 08:05
PROVIDERS: PCP Family Medicine; Visit Provider Nurse Practitioner Family
DX: J32.3 Chronic sphenoidal sinusitis (principal); J34.2 Deviated nasal septum
CPT/HCPCS: 70486

== ENCOUNTER 2025-05-25 07:52 | Outpatient (CLI) | payer OTHER, SELFPAY ==
--- NOTE | 2025-05-25 07:55 | US_ITS ---
WS: [id number] ULTRASOUND LEFT BREAST, limited HISTORY: L BREAST PAIN S/P MYRIAM MASTECTOMY/L BREAST CA/CHEST WALL PAIN COMPARISON: 07/03/2023 TECHNIQUE: 2-D and Doppler. Ultrasound is directed to the areas of pain by the patient. Pain is along the LEFT lateral chest wall and at 10:00 and 7:00. There is no mass identified. No soft tissue distortion. US/US breast LT limited* [id number] IMPRESSION: BI-RADS: 2- Benign FOLLOW-UP: See Report No ultrasound abnormality noted in the areas of pain along the LEFT chest wall. Patient is status post mastectomy.
== END 2025-05-25 07:53 | disposition home or self-care (01) ==
LOC: RAD 07:52
PROVIDERS: Visit Provider Nurse Practitioner Family
DX: Z90.13 Acquired absence of bilateral breasts and nipples (principal); R07.89 Other chest pain; Z85.3 Personal history of malignant neoplasm of breast; N64.4 Mastodynia
CPT/HCPCS: 76642

== ENCOUNTER 2025-05-30 06:30 | Outpatient (RCR) | payer OTHER, SELFPAY | END 2025-06-28 23:59 | disposition home or self-care (01) | LOC: SPT 06:30 | PROVIDERS: PCP Family Medicine; Visit Provider Nurse Practitioner Family | DX: Z98.890 Other specified postprocedural states (principal) | CPT/HCPCS: 97140; 97161 ==

== ENCOUNTER 2025-06-11 12:36 | Oncology outpatient (recurring) (ONCR) | payer OTHER, SELFPAY ==
[2025-06-11 12:47] LABS: Hematocrit 38.8 % (36-47); Hemoglobin 13.30 g/dL (11.27-16.99); Mean Corpuscular HGB Conc 34.3 g/dL (30-55); Mean Corpuscular Hemoglobin 29.8 pg (27-33); Mean Corpuscular Volume 86.8 fl (85-98); Nucleated Red Blood Cells % 0 %; Platelet Count 148 10^3/cmm (157-399); Red Blood Count 4.47 10^6/uL (3.85-5.65); White Blood Count 4.84 10^3/uL (3.29-11.43)
[2025-06-11 13:08] LABS: Alanine Aminotransferase 15 U/L (0-33); Albumin Level 4.3 g/dL (3.5-5.2); Alkaline Phosphatase 37 U/L (35-105); Anion Gap 15.8 (5-19); Aspartate Amino Transferase 19 U/L (0-32); Blood Urea Nitrogen 9 mg/dL (6-20); Calcium 9.3 mg/dL (8.5-10.5); Carbon Dioxide 25 mmol/L (22-29); Chloride 104 mmol/L (98-107); Globulin 2.8 g/dL (1.3-4.6); Glucose 113 mg/dL (65-115); Osmolality Calculated 291 mOsm/kg (285-295); Potassium 3.8 mmol/L (3.5-5.1); Sodium 141 mmol/L (136-145); Total Protein 7.1 g/dL (6.6-8.7)
== END 2025-06-28 23:59 | disposition home or self-care (01) ==
PROVIDERS: Nurse Practitioner Family; PCP Family Medicine; Visit Provider Nurse Practitioner
DX: C50.812 Malignant neoplasm of overlapping sites of left female breast (principal)
CPT/HCPCS: 36415; 80053; 85025

== ENCOUNTER → 2025-06-27 13:11 | Outpatient (BNVA) | payer OTHER, SELFPAY | PROVIDERS: PCP Family Medicine; Visit Provider Nurse Practitioner | DX: R39.89 Other symptoms and signs involving the genitourinary system (principal); N30.01 Acute cystitis with hematuria | CPT/HCPCS: 81000; 87086 ==

== ENCOUNTER 2025-06-29 05:00 | Outpatient (RCR) | payer OTHER, SELFPAY | END 2025-07-29 23:59 | disposition home or self-care (01) | LOC: SPT 05:00 | PROVIDERS: PCP Family Medicine; Visit Provider Nurse Practitioner Family | DX: Z98.890 Other specified postprocedural states (principal) | CPT/HCPCS: 97140 ==

== ENCOUNTER → 2025-07-09 15:53 | Outpatient (BNVA) | payer OTHER, SELFPAY | PROVIDERS: PCP Family Medicine; Visit Provider Nurse Practitioner Women's Health | DX: Z11.3 Encounter for screening for infections with a predominantly sexual mode of transmission (principal) | CPT/HCPCS: 86592; 86803; 87340; 87491; 87591; 87661; 87806 ==